=== PATIENT | female | born 1965 | race African-American/Black ===

== ENCOUNTER 2021-05-24 12:01 | Inpatient (IN) | payer OTHER ==
[2021-05-24 13:29] VITALS: BMI 23.3
[2021-05-24] MEDS ORDERED: MAG HYDROX/AL HYDROX/SIMETH 30 ML UNIT-DOSE CUP PO PRN (13:56)
[2021-05-24] MEDS ORDERED: P-EPHED 60MG/TRIPROLIDI 2.5MG TABLET PO PRN (13:56)
[2021-05-24] MEDS ORDERED: MAGNESIUM CITRATE 300 ML BOTTLE PO PRN (13:56)
[2021-05-24] MEDS ORDERED: MAGNESIUM HYDROX 2400MG/30ML ORAL SUSPENSION 30 ML CUP PO PRN (13:56)
[2021-05-24] MEDS ORDERED: guaiFENesin 200 MG/10 ML 10 ML UNIT-DOSE CUPS PO PRN (13:56)
[2021-05-24] MEDS ORDERED: LOPERAMIDE HCL 2 MG CAPSULE PO PRN (13:56)
[2021-05-24] MEDS ORDERED: IBUPROFEN 400 MG TABLET (FP) PO PRN (13:56)
[2021-05-24] MEDS: hydrOXYzine PAMOATE 25 MG CAPSULE (FP) PO SCH ×3 (21:16→22:44)
[2021-05-24] MEDS: MELATONIN 5 MG TABLETS PO SCH (21:16)
[2021-05-24] MEDS: THIAMINE HCL 100 MG TABLET (FP) PO SCH (21:19)
[2021-05-24] MEDS: PRENATAL VITAMINS W/ FOLIC ACID TABLET (FP) PO SCH (21:19)
[2021-05-24] MEDS: NICOTINE 7 MG/24 HOURS TOPICAL PATCH TD SCH (21:19)
[2021-05-25] MEDS ORDERED: methaDONE HCL 40 MG DISPERSABLE TABLET PO SCH (08:00)
[2021-05-25] MEDS ORDERED: methaDONE HCL 40 MG DISPERSABLE TABLET ONE (09:04)
[2021-05-25] MEDS ORDERED: methaDONE HCL 10 MG TABLET ONE (09:04)
[2021-05-25] MEDS: PRENATAL VITAMINS W/ FOLIC ACID TABLET (FP) PO SCH (09:07)
[2021-05-25] MEDS: NICOTINE 7 MG/24 HOURS TOPICAL PATCH TD SCH (09:07)
[2021-05-25 11:24] LABS: HEMATOCRIT 36.4 % (32.4-45.2); HEMOGLOBIN 11.5 GM/dL (10.7-15.3); MCH 26.7 pg (25.7-33.7); MCHC 31.6 g/dl (32.0-36.0); MEAN CELL VOLUME 84.3 fl (80-96); MEAN PLT VOLUME 11.1 fl (7.5-11.1); PLATELET COUNT 185 10^3/uL (134-434); RBC 4.32 M/mm3 (3.60-5.2); RDW 13.8 % (11.6-15.6)
[2021-05-25 11:49] LABS: CALCIUM 8.6 mg/dL (8.5-10.1)
[2021-05-25 11:50] LABS: ALBUMIN 3.1 g/dl (3.4-5.0); BLOOD UREA NITROGEN 20.1 mg/dL (7-18)
[2021-05-25 11:53] LABS: CREATININE 1.2 mg/dL (0.55-1.3)
[2021-05-25 11:54] LABS: BILIRUBIN,TOTAL 0.7 mg/dL (0.2-1); TOT PROT 6.2 g/dl (6.4-8.2)
[2021-05-25] MEDS: NICOTINE 10 MG CARTRIDGE (INHALER) IH PRN (12:45)
[2021-05-25 17:25] LABS: EPI CELLS >36 /uL (0-25.1); HYALINE CASTS 1 /uL (0-3.1); URINE APPEARANCE CLOUDY; URINE BACTERIA 2800 /uL (0-1359); URINE BILIRUBIN NEGATIVE (NEGATIVE); URINE COLOR YELLOW; URINE GLUCOSE (UA) NEGATIVE (NEGATIVE); URINE KETONE NEGATIVE (NEGATIVE); URINE LEUK ESTERASE 3+ (NEGATIVE); URINE NITRITE NEGATIVE (NEGATIVE); URINE PROTEIN NEGATIVE (NEGATIVE); URINE RBC 5 /uL (0-23.9); URINE UROBILINOGEN 0.2 mg/dL (0.2-1.0); URINE WBC 251 /uL (0-25.8)
[2021-05-25] MEDS: guaiFENesin 600 MG TABLET.ER (FP) PO SCH (21:19)
[2021-05-25] MEDS: MELATONIN 5 MG TABLETS PO SCH (21:19)
[2021-05-25] MEDS: THIAMINE HCL 100 MG TABLET (FP) PO SCH (21:19)
[2021-05-26] MEDS ORDERED: methaDONE HCL 40 MG DISPERSABLE TABLET ONE (03:04)
[2021-05-26] MEDS ORDERED: methaDONE HCL 10 MG TABLET ONE (03:04)
[2021-05-26] MEDS: NICOTINE 7 MG/24 HOURS TOPICAL PATCH TD SCH (10:28)
[2021-05-26] MEDS: NICOTINE 10 MG CARTRIDGE (INHALER) IH PRN (10:28)
[2021-05-26] MEDS: PRENATAL VITAMINS W/ FOLIC ACID TABLET (FP) PO SCH (10:28)
[2021-05-26] MEDS: guaiFENesin 600 MG TABLET.ER (FP) PO SCH ×2 (10:30→22:30)
[2021-05-26] MEDS: COLLOIDAL OATMEAL 1 BAR EACH TP PRN (10:30)
[2021-05-26] MEDS: THIAMINE HCL 100 MG TABLET (FP) PO SCH (22:30)
[2021-05-26] MEDS: MELATONIN 5 MG TABLETS PO SCH (22:30)
[2021-05-27] MEDS ORDERED: methaDONE HCL 10 MG TABLET ONE (03:10)
[2021-05-27] MEDS ORDERED: methaDONE HCL 40 MG DISPERSABLE TABLET ONE (03:11)
[2021-05-27] MEDS ORDERED: PT OWN MED DRAWER 7, Y5N ONE (09:02)
[2021-05-27] MEDS: PRENATAL VITAMINS W/ FOLIC ACID TABLET (FP) PO SCH (10:47)
[2021-05-27] MEDS: guaiFENesin 600 MG TABLET.ER (FP) PO SCH ×2 (10:47→21:18)
[2021-05-27] MEDS: NICOTINE 7 MG/24 HOURS TOPICAL PATCH TD SCH (10:48)
[2021-05-27] MEDS: NICOTINE 10 MG CARTRIDGE (INHALER) IH PRN ×2 (10:48→21:38)
[2021-05-27 14:39] LABS: SYPHILIS W/ RPR CONF NON-REACTIVE (NONREACTIVE)
[2021-05-27] MEDS: THIAMINE HCL 100 MG TABLET (FP) PO SCH (21:18)
[2021-05-27] MEDS: MELATONIN 5 MG TABLETS PO SCH (21:18)
[2021-05-27] MEDS: SODIUM CHLORIDE NASAL SPRAY 44 ML BOTTLE NS PRN (21:20)
[2021-05-28] MEDS ORDERED: methaDONE HCL 10 MG TABLET ONE (03:20)
[2021-05-28] MEDS ORDERED: methaDONE HCL 40 MG DISPERSABLE TABLET ONE (03:20)
[2021-05-28] MEDS ORDERED: PT OWN MED DRAWER 7, Y5N ONE (10:05)
[2021-05-28] MEDS: PRENATAL VITAMINS W/ FOLIC ACID TABLET (FP) PO SCH (10:13)
[2021-05-28] MEDS: guaiFENesin 600 MG TABLET.ER (FP) PO SCH ×2 (10:13→21:19)
[2021-05-28] MEDS: SODIUM CHLORIDE NASAL SPRAY 44 ML BOTTLE NS PRN ×2 (10:14→21:20)
[2021-05-28] MEDS: NICOTINE 7 MG/24 HOURS TOPICAL PATCH TD SCH (10:15)
[2021-05-28] MEDS: THIAMINE HCL 100 MG TABLET (FP) PO SCH (21:19)
[2021-05-28] MEDS: MELATONIN 5 MG TABLETS PO SCH (21:19)
[2021-05-28] MEDS: NICOTINE 10 MG CARTRIDGE (INHALER) IH PRN (21:23)
[2021-05-29] MEDS ORDERED: methaDONE HCL 10 MG TABLET ONE (03:26)
[2021-05-29] MEDS ORDERED: methaDONE HCL 40 MG DISPERSABLE TABLET ONE (03:26)
[2021-05-29] MEDS: NICOTINE 7 MG/24 HOURS TOPICAL PATCH TD SCH (10:03)
[2021-05-29] MEDS: PRENATAL VITAMINS W/ FOLIC ACID TABLET (FP) PO SCH (10:03)
[2021-05-29] MEDS ORDERED: PT OWN MED DRAWER 7, Y5N ONE (10:06)
[2021-05-29] MEDS: guaiFENesin 600 MG TABLET.ER (FP) PO SCH (10:07)
[2021-05-29] MEDS: SODIUM CHLORIDE NASAL SPRAY 44 ML BOTTLE NS PRN (10:08)
[2021-05-29] MEDS: ACETAMINOPHEN 325 MG TABLET (FP) PO PRN (16:12)
[2021-05-29] MEDS: MELATONIN 5 MG TABLETS PO SCH (21:07)
[2021-05-29] MEDS: THIAMINE HCL 100 MG TABLET (FP) PO SCH (21:07)
[2021-05-30] MEDS ORDERED: methaDONE HCL 10 MG TABLET ONE (04:02)
[2021-05-30] MEDS ORDERED: methaDONE HCL 40 MG DISPERSABLE TABLET ONE (04:03)
[2021-05-30] MEDS: PRENATAL VITAMINS W/ FOLIC ACID TABLET (FP) PO SCH (10:04)
[2021-05-30] MEDS: NICOTINE 7 MG/24 HOURS TOPICAL PATCH TD SCH (10:04)
[2021-05-30] MEDS: SODIUM CHLORIDE NASAL SPRAY 44 ML BOTTLE NS PRN ×2 (10:04→21:30)
[2021-05-30] MEDS: SUVOREXANT 10 MG TABLET PO PRN (21:30)
[2021-05-30] MEDS: THIAMINE HCL 100 MG TABLET (FP) PO SCH (21:31)
[2021-05-30] MEDS: MELATONIN 5 MG TABLETS PO SCH (21:32)
[2021-05-30] MEDS: NICOTINE 10 MG CARTRIDGE (INHALER) IH PRN (21:33)
[2021-05-31] MEDS ORDERED: methaDONE HCL 10 MG TABLET ONE (03:17)
[2021-05-31] MEDS ORDERED: methaDONE HCL 40 MG DISPERSABLE TABLET ONE (03:18)
[2021-05-31] MEDS: guaiFENesin 200 MG/10 ML 10 ML UNIT-DOSE CUPS PO PRN ×2 (06:37→21:30)
[2021-05-31] MEDS: NICOTINE 7 MG/24 HOURS TOPICAL PATCH TD SCH (10:05)
[2021-05-31] MEDS: PRENATAL VITAMINS W/ FOLIC ACID TABLET (FP) PO SCH (10:05)
[2021-05-31] MEDS: SODIUM CHLORIDE NASAL SPRAY 44 ML BOTTLE NS PRN ×2 (10:05→21:31)
[2021-05-31] MEDS ORDERED: methaDONE HCL 40 MG DISPERSABLE TABLET PO SCH ×2 (13:08→13:11)
[2021-05-31] MEDS ORDERED: PHENYLEPHRINE HCL/COCOA BUTTER SUPPOSITORY RC PRN (13:29)
[2021-05-31] MEDS: ACETAMINOPHEN 325 MG TABLET (FP) PO PRN (20:21)
[2021-05-31] MEDS: THIAMINE HCL 100 MG TABLET (FP) PO SCH (21:31)
[2021-05-31] MEDS: SUVOREXANT 10 MG TABLET PO PRN (21:31)
[2021-05-31] MEDS: SULFAMETHOXAZOLE/TRIMETHOPRIM 800MG/160MG D.S. TABLET PO SCH (21:31)
[2021-05-31] MEDS: HYDROCORTISONE 2.5% TOPICAL CREAM 30 GM TUBE TP SCH (22:27)
[2021-06-01] MEDS ORDERED: methaDONE HCL 40 MG DISPERSABLE TABLET ONE (06:27)
[2021-06-01] MEDS ORDERED: methaDONE HCL 10 MG TABLET ONE (06:27)
[2021-06-01] MEDS: guaiFENesin 200 MG/10 ML 10 ML UNIT-DOSE CUPS PO PRN ×2 (06:30→21:05)
[2021-06-01] MEDS: NICOTINE 7 MG/24 HOURS TOPICAL PATCH TD SCH (10:14)
[2021-06-01] MEDS: PRENATAL VITAMINS W/ FOLIC ACID TABLET (FP) PO SCH (10:14)
[2021-06-01] MEDS: SULFAMETHOXAZOLE/TRIMETHOPRIM 800MG/160MG D.S. TABLET PO SCH ×2 (10:15→21:03)
[2021-06-01] MEDS: SODIUM CHLORIDE NASAL SPRAY 44 ML BOTTLE NS PRN ×2 (10:16→21:02)
[2021-06-01] MEDS: ACETAMINOPHEN 325 MG TABLET (FP) PO PRN (10:17)
[2021-06-01] MEDS: HYDROCORTISONE 2.5% TOPICAL CREAM 30 GM TUBE TP SCH (10:20)
[2021-06-01] MEDS: THIAMINE HCL 100 MG TABLET (FP) PO SCH (21:03)
[2021-06-01] MEDS: NICOTINE 10 MG CARTRIDGE (INHALER) IH PRN (21:05)
[2021-06-01] MEDS: SUVOREXANT 10 MG TABLET PO PRN (22:13)
[2021-06-02] MEDS ORDERED: methaDONE HCL 10 MG TABLET ONE (06:33)
[2021-06-02] MEDS ORDERED: methaDONE HCL 40 MG DISPERSABLE TABLET ONE (06:33)
[2021-06-02] MEDS: guaiFENesin 200 MG/10 ML 10 ML UNIT-DOSE CUPS PO PRN ×2 (06:38→21:53)
[2021-06-02] MEDS: SODIUM CHLORIDE NASAL SPRAY 44 ML BOTTLE NS PRN ×2 (06:38→21:52)
[2021-06-02] MEDS: PRENATAL VITAMINS W/ FOLIC ACID TABLET (FP) PO SCH (10:17)
[2021-06-02] MEDS: SULFAMETHOXAZOLE/TRIMETHOPRIM 800MG/160MG D.S. TABLET PO SCH ×2 (10:17→21:52)
[2021-06-02] MEDS: NICOTINE 7 MG/24 HOURS TOPICAL PATCH TD SCH (10:18)
[2021-06-02] MEDS: HYDROCORTISONE 2.5% TOPICAL CREAM 30 GM TUBE TP SCH (10:20)
[2021-06-02] MEDS: ACETAMINOPHEN 325 MG TABLET (FP) PO PRN (11:23)
[2021-06-02] MEDS: NICOTINE 10 MG CARTRIDGE (INHALER) IH PRN (11:23)
[2021-06-02] MEDS: SUVOREXANT 10 MG TABLET PO PRN (21:51)
[2021-06-02] MEDS: THIAMINE HCL 100 MG TABLET (FP) PO SCH (21:52)
[2021-06-03] MEDS ORDERED: methaDONE HCL 40 MG DISPERSABLE TABLET ONE (03:37)
[2021-06-03] MEDS ORDERED: methaDONE HCL 10 MG TABLET ONE (03:37)
[2021-06-03] MEDS: SODIUM CHLORIDE NASAL SPRAY 44 ML BOTTLE NS PRN ×2 (06:24→21:16)
[2021-06-03] MEDS: guaiFENesin 200 MG/10 ML 10 ML UNIT-DOSE CUPS PO PRN ×2 (06:27→21:17)
[2021-06-03] MEDS: PRENATAL VITAMINS W/ FOLIC ACID TABLET (FP) PO SCH (10:35)
[2021-06-03] MEDS: SULFAMETHOXAZOLE/TRIMETHOPRIM 800MG/160MG D.S. TABLET PO SCH (10:35)
[2021-06-03] MEDS: NICOTINE 7 MG/24 HOURS TOPICAL PATCH TD SCH (10:36)
[2021-06-03] MEDS: HYDROCORTISONE 2.5% TOPICAL CREAM 30 GM TUBE TP SCH (10:37)
[2021-06-03] MEDS: NICOTINE 10 MG CARTRIDGE (INHALER) IH PRN (15:48)
[2021-06-03] MEDS: THIAMINE HCL 100 MG TABLET (FP) PO SCH (21:13)
[2021-06-03] MEDS: SUVOREXANT 10 MG TABLET PO PRN (21:16)
[2021-06-04] MEDS ORDERED: methaDONE HCL 10 MG TABLET ONE (03:29)
[2021-06-04] MEDS ORDERED: methaDONE HCL 40 MG DISPERSABLE TABLET ONE (03:29)
[2021-06-04] MEDS: SODIUM CHLORIDE NASAL SPRAY 44 ML BOTTLE NS PRN ×2 (06:27→21:46)
[2021-06-04] MEDS: guaiFENesin 200 MG/10 ML 10 ML UNIT-DOSE CUPS PO PRN (06:28)
[2021-06-04] MEDS: PRENATAL VITAMINS W/ FOLIC ACID TABLET (FP) PO SCH (10:50)
[2021-06-04] MEDS: NICOTINE 7 MG/24 HOURS TOPICAL PATCH TD SCH (10:51)
[2021-06-04] MEDS: HYDROCORTISONE 2.5% TOPICAL CREAM 30 GM TUBE TP SCH (10:52)
[2021-06-04] MEDS: ACETAMINOPHEN 325 MG TABLET (FP) PO PRN ×2 (10:53→21:48)
[2021-06-04] MEDS: COLLOIDAL OATMEAL 1 BAR EACH TP PRN (10:54)
[2021-06-04] MEDS: THIAMINE HCL 100 MG TABLET (FP) PO SCH (21:44)
[2021-06-04] MEDS: SUVOREXANT 10 MG TABLET PO PRN (21:45)
[2021-06-04] MEDS: NICOTINE 10 MG CARTRIDGE (INHALER) IH PRN (21:49)
[2021-06-05] MEDS ORDERED: methaDONE HCL 40 MG DISPERSABLE TABLET ONE (03:34)
[2021-06-05] MEDS ORDERED: methaDONE HCL 10 MG TABLET ONE (03:34)
[2021-06-05] MEDS: guaiFENesin 200 MG/10 ML 10 ML UNIT-DOSE CUPS PO PRN (06:39)
[2021-06-05] MEDS: PRENATAL VITAMINS W/ FOLIC ACID TABLET (FP) PO SCH (10:30)
[2021-06-05] MEDS: NICOTINE 7 MG/24 HOURS TOPICAL PATCH TD SCH (10:31)
[2021-06-05] MEDS: HYDROCORTISONE 2.5% TOPICAL CREAM 30 GM TUBE TP SCH (10:32)
[2021-06-05] MEDS: ACETAMINOPHEN 325 MG TABLET (FP) PO PRN ×2 (10:33→22:26)
[2021-06-05] MEDS: THIAMINE HCL 100 MG TABLET (FP) PO SCH (22:26)
[2021-06-05] MEDS: NICOTINE 10 MG CARTRIDGE (INHALER) IH PRN (22:29)
[2021-06-05] MEDS: SUVOREXANT 10 MG TABLET PO PRN (22:30)
[2021-06-06] MEDS ORDERED: methaDONE HCL 10 MG TABLET ONE ×2 (05:24→05:40)
[2021-06-06] MEDS ORDERED: methaDONE HCL 40 MG DISPERSABLE TABLET ONE ×2 (05:24→05:40)
[2021-06-06] MEDS: guaiFENesin 200 MG/10 ML 10 ML UNIT-DOSE CUPS PO PRN ×2 (06:52→21:35)
[2021-06-06] MEDS: ACETAMINOPHEN 325 MG TABLET (FP) PO PRN ×2 (06:52→21:35)
[2021-06-06] MEDS: PRENATAL VITAMINS W/ FOLIC ACID TABLET (FP) PO SCH (10:26)
[2021-06-06] MEDS: NICOTINE 7 MG/24 HOURS TOPICAL PATCH TD SCH (10:27)
[2021-06-06] MEDS: HYDROCORTISONE 2.5% TOPICAL CREAM 30 GM TUBE TP SCH (10:27)
[2021-06-06] MEDS: NICOTINE 10 MG CARTRIDGE (INHALER) IH PRN ×2 (10:28→15:40)
[2021-06-06 18:02] LABS: EPI CELLS 18 /uL (0-25.1); HYALINE CASTS 0 /uL (0-3.1); PH,URINE 6.5 (5.0-8.0); URINE APPEARANCE CLEAR; URINE BACTERIA 161 /uL (0-1359); URINE BILIRUBIN NEGATIVE (NEGATIVE); URINE COLOR YELLOW; URINE GLUCOSE (UA) NEGATIVE (NEGATIVE); URINE KETONE NEGATIVE (NEGATIVE); URINE LEUK ESTERASE 2+ (NEGATIVE); URINE NITRITE NEGATIVE (NEGATIVE); URINE PROTEIN NEGATIVE (NEGATIVE); URINE RBC 25 /uL (0-23.9); URINE WBC 30 /uL (0-25.8)
[2021-06-06] MEDS: SUVOREXANT 10 MG TABLET PO PRN (21:34)
[2021-06-06] MEDS: SODIUM CHLORIDE NASAL SPRAY 44 ML BOTTLE NS PRN (21:34)
[2021-06-06] MEDS: THIAMINE HCL 100 MG TABLET (FP) PO SCH (21:34)
[2021-06-07] MEDS ORDERED: methaDONE HCL 40 MG DISPERSABLE TABLET ONE (06:28)
[2021-06-07] MEDS ORDERED: methaDONE HCL 10 MG TABLET ONE (06:28)
[2021-06-07] MEDS: guaiFENesin 200 MG/10 ML 10 ML UNIT-DOSE CUPS PO PRN ×2 (06:38→21:36)
[2021-06-07] MEDS: ACETAMINOPHEN 325 MG TABLET (FP) PO PRN ×2 (06:38→21:35)
[2021-06-07] MEDS: PRENATAL VITAMINS W/ FOLIC ACID TABLET (FP) PO SCH (10:34)
[2021-06-07] MEDS: NICOTINE 7 MG/24 HOURS TOPICAL PATCH TD SCH (10:34)
[2021-06-07] MEDS: HYDROCORTISONE 2.5% TOPICAL CREAM 30 GM TUBE TP SCH (10:37)
[2021-06-07] MEDS: SODIUM CHLORIDE NASAL SPRAY 44 ML BOTTLE NS PRN ×2 (11:10→21:35)
[2021-06-07] MEDS: SUVOREXANT 10 MG TABLET PO PRN (21:35)
[2021-06-07] MEDS: THIAMINE HCL 100 MG TABLET (FP) PO SCH (21:35)
[2021-06-07] MEDS: WITCH HAZEL 50% (TUCKS) 40 PAD/JAR PAD TP PRN (21:36)
[2021-06-08] MEDS ORDERED: methaDONE HCL 10 MG TABLET ONE (03:15)
[2021-06-08] MEDS ORDERED: methaDONE HCL 40 MG DISPERSABLE TABLET ONE (03:15)
[2021-06-08] MEDS: ACETAMINOPHEN 325 MG TABLET (FP) PO PRN (10:45)
[2021-06-08] MEDS: NICOTINE 7 MG/24 HOURS TOPICAL PATCH TD SCH (10:45)
[2021-06-08] MEDS: PRENATAL VITAMINS W/ FOLIC ACID TABLET (FP) PO SCH (10:45)
[2021-06-08] MEDS: SODIUM CHLORIDE NASAL SPRAY 44 ML BOTTLE NS PRN ×2 (10:47→21:24)
[2021-06-08] MEDS: WITCH HAZEL 50% (TUCKS) 40 PAD/JAR PAD TP PRN ×2 (10:48→21:28)
[2021-06-08] MEDS: BENZOCAINE 28 GM HEMORRHOIDAL OINTMENT RC PRN (10:50)
[2021-06-08] MEDS: THIAMINE HCL 100 MG TABLET (FP) PO SCH (21:25)
[2021-06-08] MEDS: SUVOREXANT 10 MG TABLET PO PRN (21:25)
[2021-06-08] MEDS: guaiFENesin 200 MG/10 ML 10 ML UNIT-DOSE CUPS PO PRN (21:25)
[2021-06-08] MEDS: NICOTINE 10 MG CARTRIDGE (INHALER) IH PRN (21:27)
[2021-06-09] MEDS ORDERED: methaDONE HCL 10 MG TABLET ONE (03:36)
[2021-06-09] MEDS ORDERED: methaDONE HCL 40 MG DISPERSABLE TABLET ONE (03:36)
[2021-06-09] MEDS: SODIUM CHLORIDE NASAL SPRAY 44 ML BOTTLE NS PRN (06:27)
[2021-06-09] MEDS: guaiFENesin 200 MG/10 ML 10 ML UNIT-DOSE CUPS PO PRN ×2 (06:30→21:29)
[2021-06-09] MEDS: PRENATAL VITAMINS W/ FOLIC ACID TABLET (FP) PO SCH (10:18)
[2021-06-09] MEDS: NICOTINE 7 MG/24 HOURS TOPICAL PATCH TD SCH (10:19)
[2021-06-09] MEDS: NICOTINE 10 MG CARTRIDGE (INHALER) IH PRN (19:00)
[2021-06-09] MEDS: WITCH HAZEL 50% (TUCKS) 40 PAD/JAR PAD TP PRN (19:06)
[2021-06-09] MEDS: BENZOCAINE 28 GM HEMORRHOIDAL OINTMENT RC PRN (19:07)
[2021-06-09] MEDS: THIAMINE HCL 100 MG TABLET (FP) PO SCH (21:29)
[2021-06-09] MEDS: SUVOREXANT 10 MG TABLET PO PRN (21:29)
[2021-06-09] MEDS: ACETAMINOPHEN 325 MG TABLET (FP) PO PRN (21:29)
[2021-06-10] MEDS ORDERED: methaDONE HCL 40 MG DISPERSABLE TABLET ONE (05:39)
[2021-06-10] MEDS ORDERED: methaDONE HCL 10 MG TABLET ONE (05:39)
[2021-06-10] MEDS: SODIUM CHLORIDE NASAL SPRAY 44 ML BOTTLE NS PRN ×2 (06:42→21:51)
[2021-06-10] MEDS: guaiFENesin 200 MG/10 ML 10 ML UNIT-DOSE CUPS PO PRN ×2 (06:42→21:51)
[2021-06-10] MEDS: PRENATAL VITAMINS W/ FOLIC ACID TABLET (FP) PO SCH (10:28)
[2021-06-10] MEDS: NICOTINE 7 MG/24 HOURS TOPICAL PATCH TD SCH (10:28)
[2021-06-10] MEDS: ACETAMINOPHEN 325 MG TABLET (FP) PO PRN (17:14)
[2021-06-10] MEDS: THIAMINE HCL 100 MG TABLET (FP) PO SCH (21:51)
[2021-06-10] MEDS: SUVOREXANT 10 MG TABLET PO PRN (21:52)
[2021-06-11] MEDS ORDERED: methaDONE HCL 10 MG TABLET ONE (03:46)
[2021-06-11] MEDS ORDERED: methaDONE HCL 40 MG DISPERSABLE TABLET ONE (03:46)
[2021-06-11] MEDS: guaiFENesin 200 MG/10 ML 10 ML UNIT-DOSE CUPS PO PRN ×2 (06:55→21:28)
[2021-06-11] MEDS: SODIUM CHLORIDE NASAL SPRAY 44 ML BOTTLE NS PRN ×2 (06:57→21:27)
[2021-06-11] MEDS: NICOTINE 7 MG/24 HOURS TOPICAL PATCH TD SCH (09:53)
[2021-06-11] MEDS: PRENATAL VITAMINS W/ FOLIC ACID TABLET (FP) PO SCH (09:53)
[2021-06-11] MEDS: ACETAMINOPHEN 325 MG TABLET (FP) PO PRN ×2 (09:54→21:28)
[2021-06-11] MEDS: SUVOREXANT 10 MG TABLET PO PRN (21:27)
[2021-06-11] MEDS: THIAMINE HCL 100 MG TABLET (FP) PO SCH (21:28)
[2021-06-11] MEDS: NICOTINE 10 MG CARTRIDGE (INHALER) IH PRN (21:30)
[2021-06-12] MEDS ORDERED: methaDONE HCL 10 MG TABLET ONE (05:29)
[2021-06-12] MEDS ORDERED: methaDONE HCL 40 MG DISPERSABLE TABLET ONE (05:29)
[2021-06-12] MEDS: guaiFENesin 200 MG/10 ML 10 ML UNIT-DOSE CUPS PO PRN (06:35)
[2021-06-12] MEDS: ACETAMINOPHEN 325 MG TABLET (FP) PO PRN ×2 (06:36→19:52)
[2021-06-12] MEDS: SODIUM CHLORIDE NASAL SPRAY 44 ML BOTTLE NS PRN (06:37)
[2021-06-12] MEDS: WITCH HAZEL 50% (TUCKS) 40 PAD/JAR PAD TP PRN (10:20)
[2021-06-12] MEDS: NICOTINE 7 MG/24 HOURS TOPICAL PATCH TD SCH (10:20)
[2021-06-12] MEDS: PRENATAL VITAMINS W/ FOLIC ACID TABLET (FP) PO SCH (10:20)
[2021-06-12] MEDS: BENZOCAINE 28 GM HEMORRHOIDAL OINTMENT RC PRN (10:21)
[2021-06-12] MEDS: SUVOREXANT 10 MG TABLET PO PRN (21:36)
[2021-06-12] MEDS: THIAMINE HCL 100 MG TABLET (FP) PO SCH (21:36)
[2021-06-13] MEDS ORDERED: methaDONE HCL 10 MG TABLET ONE (05:57)
[2021-06-13] MEDS ORDERED: methaDONE HCL 40 MG DISPERSABLE TABLET ONE (05:57)
[2021-06-13] MEDS: guaiFENesin 200 MG/10 ML 10 ML UNIT-DOSE CUPS PO PRN ×2 (06:17→21:19)
[2021-06-13] MEDS: SODIUM CHLORIDE NASAL SPRAY 44 ML BOTTLE NS PRN ×2 (06:17→21:19)
[2021-06-13] MEDS: ACETAMINOPHEN 325 MG TABLET (FP) PO PRN ×2 (07:08→21:20)
[2021-06-13] MEDS: NICOTINE 7 MG/24 HOURS TOPICAL PATCH TD SCH (10:01)
[2021-06-13] MEDS: PRENATAL VITAMINS W/ FOLIC ACID TABLET (FP) PO SCH (10:01)
[2021-06-13] MEDS: NICOTINE 10 MG CARTRIDGE (INHALER) IH PRN (10:02)
[2021-06-13] MEDS: BENZOCAINE 28 GM HEMORRHOIDAL OINTMENT RC PRN (10:03)
[2021-06-13] MEDS: THIAMINE HCL 100 MG TABLET (FP) PO SCH (21:19)
[2021-06-13] MEDS: SUVOREXANT 10 MG TABLET PO PRN (21:19)
[2021-06-14] MEDS ORDERED: methaDONE 80 MG, methaDONE 20 MG PO SCH (06:00)
[2021-06-14] MEDS ORDERED: methaDONE HCL 10 MG TABLET PO SCH (06:00)
[2021-06-14] MEDS ORDERED: methaDONE HCL 40 MG DISPERSABLE TABLET ONE (06:38)
[2021-06-14] MEDS ORDERED: methaDONE HCL 10 MG TABLET ONE (06:38)
[2021-06-14] MEDS: guaiFENesin 200 MG/10 ML 10 ML UNIT-DOSE CUPS PO PRN ×2 (06:40→21:26)
[2021-06-14] MEDS: ACETAMINOPHEN 325 MG TABLET (FP) PO PRN ×2 (09:47→18:40)
[2021-06-14] MEDS: PRENATAL VITAMINS W/ FOLIC ACID TABLET (FP) PO SCH (09:47)
[2021-06-14] MEDS: BENZOCAINE 28 GM HEMORRHOIDAL OINTMENT RC PRN (09:48)
[2021-06-14] MEDS: WITCH HAZEL 50% (TUCKS) 40 PAD/JAR PAD TP PRN (09:51)
[2021-06-14] MEDS: NICOTINE 7 MG/24 HOURS TOPICAL PATCH TD SCH (09:51)
[2021-06-14] MEDS: SODIUM CHLORIDE NASAL SPRAY 44 ML BOTTLE NS PRN (21:25)
[2021-06-14] MEDS: THIAMINE HCL 100 MG TABLET (FP) PO SCH (21:26)
[2021-06-14] MEDS: COLLOIDAL OATMEAL 1 BAR EACH TP PRN (21:26)
[2021-06-14] MEDS: NICOTINE 10 MG CARTRIDGE (INHALER) IH PRN (21:27)
[2021-06-15] MEDS ORDERED: methaDONE HCL 10 MG TABLET PO SCH (06:00)
[2021-06-15] MEDS ORDERED: methaDONE HCL 40 MG DISPERSABLE TABLET ONE (06:46)
[2021-06-15] MEDS ORDERED: methaDONE HCL 10 MG TABLET ONE (06:46)
[2021-06-15] MEDS: NICOTINE 7 MG/24 HOURS TOPICAL PATCH TD SCH (11:05)
[2021-06-15] MEDS: PRENATAL VITAMINS W/ FOLIC ACID TABLET (FP) PO SCH (11:05)
[2021-06-15] MEDS: BACITRACIN 0.9 GM PACKET TP SCH ×2 (14:36→22:13)
[2021-06-15] MEDS: SUVOREXANT 10 MG TABLET PO PRN (22:12)
[2021-06-15] MEDS: ACETAMINOPHEN 325 MG TABLET (FP) PO PRN (22:13)
[2021-06-15] MEDS: SODIUM CHLORIDE NASAL SPRAY 44 ML BOTTLE NS PRN (22:13)
[2021-06-15] MEDS: guaiFENesin 200 MG/10 ML 10 ML UNIT-DOSE CUPS PO PRN (22:13)
[2021-06-15] MEDS: THIAMINE HCL 100 MG TABLET (FP) PO SCH (22:14)
[2021-06-16] MEDS ORDERED: methaDONE HCL 40 MG DISPERSABLE TABLET ONE (04:40)
[2021-06-16] MEDS ORDERED: methaDONE HCL 10 MG TABLET ONE (04:40)
[2021-06-16] MEDS ORDERED: methaDONE HCL 10 MG TABLET PO SCH (06:00)
[2021-06-16] MEDS: methaDONE 80 MG, methaDONE 10 MG PO SCH (06:35)
[2021-06-16] MEDS: SODIUM CHLORIDE NASAL SPRAY 44 ML BOTTLE NS PRN ×2 (10:51→21:15)
[2021-06-16] MEDS: PRENATAL VITAMINS W/ FOLIC ACID TABLET (FP) PO SCH (10:52)
[2021-06-16] MEDS: ACETAMINOPHEN 325 MG TABLET (FP) PO PRN ×2 (10:52→21:16)
[2021-06-16] MEDS: BACITRACIN 0.9 GM PACKET TP SCH ×2 (10:53→21:15)
[2021-06-16] MEDS: NICOTINE 7 MG/24 HOURS TOPICAL PATCH TD SCH (10:53)
[2021-06-16] MEDS: BENZOCAINE 28 GM HEMORRHOIDAL OINTMENT RC PRN (10:53)
[2021-06-16] MEDS: WITCH HAZEL 50% (TUCKS) 40 PAD/JAR PAD TP PRN (10:54)
[2021-06-16] MEDS: NICOTINE 10 MG CARTRIDGE (INHALER) IH PRN (14:13)
[2021-06-16] MEDS: guaiFENesin 200 MG/10 ML 10 ML UNIT-DOSE CUPS PO PRN (21:15)
[2021-06-16] MEDS: SUVOREXANT 10 MG TABLET PO PRN (21:15)
[2021-06-16] MEDS: THIAMINE HCL 100 MG TABLET (FP) PO SCH (21:16)
[2021-06-17] MEDS ORDERED: methaDONE HCL 10 MG TABLET ONE (03:54)
[2021-06-17] MEDS ORDERED: methaDONE HCL 40 MG DISPERSABLE TABLET ONE (03:54)
[2021-06-17] MEDS: SODIUM CHLORIDE NASAL SPRAY 44 ML BOTTLE NS PRN (06:40)
[2021-06-17] MEDS: methaDONE 80 MG, methaDONE 10 MG PO SCH (06:40)
[2021-06-17] MEDS: guaiFENesin 200 MG/10 ML 10 ML UNIT-DOSE CUPS PO PRN (06:42)
[2021-06-17] MEDS: PRENATAL VITAMINS W/ FOLIC ACID TABLET (FP) PO SCH (11:08)
[2021-06-17] MEDS: NICOTINE 7 MG/24 HOURS TOPICAL PATCH TD SCH (11:09)
[2021-06-17] MEDS: BACITRACIN 0.9 GM PACKET TP SCH ×2 (11:09→21:45)
[2021-06-17] MEDS: THIAMINE HCL 100 MG TABLET (FP) PO SCH (21:45)
[2021-06-18] MEDS ORDERED: methaDONE HCL 40 MG DISPERSABLE TABLET ONE (03:47)
[2021-06-18] MEDS ORDERED: methaDONE HCL 10 MG TABLET ONE (03:47)
[2021-06-18] MEDS: NICOTINE 10 MG CARTRIDGE (INHALER) IH PRN (07:05)
[2021-06-18] MEDS: methaDONE 80 MG, methaDONE 10 MG PO SCH (07:07)
[2021-06-18] MEDS: guaiFENesin 200 MG/10 ML 10 ML UNIT-DOSE CUPS PO PRN ×2 (07:07→21:51)
[2021-06-18] MEDS: SODIUM CHLORIDE NASAL SPRAY 44 ML BOTTLE NS PRN ×2 (07:09→21:51)
[2021-06-18] MEDS: NICOTINE 7 MG/24 HOURS TOPICAL PATCH TD SCH (10:19)
[2021-06-18] MEDS: PRENATAL VITAMINS W/ FOLIC ACID TABLET (FP) PO SCH (10:19)
[2021-06-18] MEDS: BACITRACIN 0.9 GM PACKET TP SCH ×2 (10:20→21:39)
[2021-06-18] MEDS: THIAMINE HCL 100 MG TABLET (FP) PO SCH (21:39)
[2021-06-18] MEDS: SUVOREXANT 10 MG TABLET PO PRN (21:47)
[2021-06-18] MEDS: ACETAMINOPHEN 325 MG TABLET (FP) PO PRN (21:50)
[2021-06-19] MEDS ORDERED: methaDONE HCL 40 MG DISPERSABLE TABLET ONE (03:44)
[2021-06-19] MEDS ORDERED: methaDONE HCL 10 MG TABLET ONE (03:44)
[2021-06-19] MEDS: methaDONE 80 MG, methaDONE 10 MG PO SCH (06:13)
[2021-06-19] MEDS: guaiFENesin 200 MG/10 ML 10 ML UNIT-DOSE CUPS PO PRN ×2 (06:16→21:20)
[2021-06-19] MEDS: SODIUM CHLORIDE NASAL SPRAY 44 ML BOTTLE NS PRN ×2 (06:17→21:20)
[2021-06-19] MEDS: PRENATAL VITAMINS W/ FOLIC ACID TABLET (FP) PO SCH (10:39)
[2021-06-19] MEDS: BACITRACIN 0.9 GM PACKET TP SCH ×2 (10:40→21:21)
[2021-06-19] MEDS: NICOTINE 7 MG/24 HOURS TOPICAL PATCH TD SCH (10:40)
[2021-06-19] MEDS: SUVOREXANT 10 MG TABLET PO PRN (21:20)
[2021-06-19] MEDS: THIAMINE HCL 100 MG TABLET (FP) PO SCH (21:21)
[2021-06-19] MEDS: ACETAMINOPHEN 325 MG TABLET (FP) PO PRN (21:21)
[2021-06-20] MEDS ORDERED: methaDONE HCL 40 MG DISPERSABLE TABLET ONE (03:10)
[2021-06-20] MEDS ORDERED: methaDONE HCL 10 MG TABLET ONE (03:10)
[2021-06-20] MEDS: methaDONE 80 MG, methaDONE 10 MG PO SCH (06:13)
[2021-06-20 07:32] VITALS: BP 124/67; PULSE 53; TEMP 96.8
[2021-06-20] MEDS: PRENATAL VITAMINS W/ FOLIC ACID TABLET (FP) PO SCH (09:40)
[2021-06-20] MEDS: BACITRACIN 0.9 GM PACKET TP SCH (09:41)
[2021-06-20] MEDS: NICOTINE 7 MG/24 HOURS TOPICAL PATCH TD SCH (09:41)
== END 2021-06-20 09:40 | disposition home or self-care (01) | DRG 772 ==
LOC: YASAS 12:01 → Y5N 18:50
PROVIDERS: ADMIT Allergy & Immunology; ATTEND Allergy & Immunology
PROC: HZ42ZZZ Group Counseling for Substance Abuse Treatment, Cognitive-Behavioral (ICD-10-PCS; principal; 2021-05-24)
DX: F11.20 Opioid dependence, uncomplicated (principal); F14.20 Cocaine dependence, uncomplicated; F31.9 Bipolar disorder, unspecified; F19.282 Other psychoactive substance dependence with psychoactive substance-induced sleep disorder; F19.280 Other psychoactive substance dependence with psychoactive substance-induced anxiety disorder; F19.24 Other psychoactive substance dependence with psychoactive substance-induced mood disorder; F41.8 Other specified anxiety disorders; F43.10 Post-traumatic stress disorder, unspecified; K62.89 Other specified diseases of anus and rectum; N39.0 Urinary tract infection, site not specified; R00.1 Bradycardia, unspecified; R05.9 Cough, unspecified; Z59.01 Sheltered homelessness; Z56.0 Unemployment, unspecified
CPT/HCPCS: 36415; 71046-TC-FY; 80053; 81003; 85027; 86780; 86803; 87086; 93005; 93010; C9803; U0003; U0005

== ENCOUNTER 2022-09-04 12:47 | Inpatient (IN) | payer OTHER ==
[2022-09-04 13:29] VITALS: BMI 20.9
[2022-09-04] MEDS ORDERED: MAG HYDROX/AL HYDROX/SIMETH 30 ML UNIT-DOSE CUP PO PRN (16:02)
[2022-09-04] MEDS ORDERED: MAGNESIUM HYDROX 2400MG/30ML ORAL SUSPENSION 30 ML CUP PO PRN (16:02)
[2022-09-04] MEDS ORDERED: NALOXONE HCL 0.4 MG/ML VIAL IM PRN (16:02)
[2022-09-04] MEDS ORDERED: MELATONIN 5 MG TABLETS PO PRN (16:02)
[2022-09-04] MEDS ORDERED: AMMONIUM LACTATE 12% LOTION 225 GM BOTTLE TP PRN (16:02)
[2022-09-04] MEDS ORDERED: NALOXONE HCL (KLOXXADO) 8 MG SPRAY NS PRN (16:02)
[2022-09-04] MEDS ORDERED: P-EPHED 60MG/TRIPROLIDI 2.5MG TABLET PO PRN (16:02)
[2022-09-04] MEDS ORDERED: guaiFENesin 600 MG TABLET.ER (FP) PO PRN (16:02)
[2022-09-04] MEDS ORDERED: BENZOCAINE/MENTHOL (CHLORASEPTIC ) LOZENGE MM PRN (16:02)
[2022-09-04] MEDS ORDERED: BENZONATATE 200 MG CAPSULE PO PRN (16:02)
[2022-09-04] MEDS ORDERED: POLYETHYLENE GLYCOL (HEALTHYLAX) 3350 17 GM PACKET PO PRN (16:02)
[2022-09-04] MEDS: NICOTINE POLACRILEX 2 MG GUM BUC PRN (20:34)
[2022-09-04] MEDS: THIAMINE HCL 100 MG TABLET (FP) PO SCH (21:17)
[2022-09-05] MEDS: methaDONE HCL 40 MG DISPERSABLE TABLET PO SCH (09:24)
[2022-09-05] MEDS: PRENATAL VITAMINS W/ FOLIC ACID TABLET (FP) PO SCH (09:25)
[2022-09-05 11:04] LABS: HEMATOCRIT 33.1 % (32.4-45.2); MCH 28.3 pg (25.7-33.7); MCHC 33.1 g/dl (32.0-36.0); MEAN CELL VOLUME 85.4 fl (80-96); MEAN PLT VOLUME 9.4 fl (7.5-11.1); PLATELET COUNT 218 10^3/uL (134-434); RBC 3.87 M/mm3 (3.60-5.2); WHITE BLOOD COUNT 5.5 K/mm3 (4.0-10.0)
[2022-09-05 11:07] LABS: POTASSIUM 4.6 mmol/L (3.5-5.1)
[2022-09-05 11:11] LABS: CALCIUM 8.8 mg/dL (8.5-10.1)
[2022-09-05 11:12] LABS: BLOOD UREA NITROGEN 31.1 mg/dL (7-18)
[2022-09-05 11:13] LABS: ALBUMIN 2.9 g/dl (3.4-5.0)
[2022-09-05 11:15] LABS: BILIRUBIN,TOTAL 0.3 mg/dL (0.2-1); CREATININE 1.4 mg/dL (0.55-1.3); TOT PROT 5.6 g/dl (6.4-8.2)
[2022-09-05 11:17] LABS: EPI CELLS >36 /uL (0-25.1); HYALINE CASTS 1 /uL (0-3.1); PH,URINE 5.5 (5.0-8.0); URINE APPEARANCE CLEAR; URINE BACTERIA 852 /uL (0-1359); URINE BILIRUBIN NEGATIVE (NEGATIVE); URINE COLOR YELLOW; URINE GLUCOSE (UA) NEGATIVE (NEGATIVE); URINE KETONE NEGATIVE (NEGATIVE); URINE LEUK ESTERASE 2+ (NEGATIVE); URINE NITRITE NEGATIVE (NEGATIVE); URINE PROTEIN NEGATIVE (NEGATIVE); URINE RBC 23 /uL (0-23.9); URINE UROBILINOGEN 0.2 mg/dL (0.2-1.0); URINE WBC 97 /uL (0-25.8)
[2022-09-05 11:33] LABS: SYPHILIS W/ RPR CONF NON-REACTIVE (NONREACTIVE)
[2022-09-05] MEDS: THIAMINE HCL 100 MG TABLET (FP) PO SCH (21:06)
[2022-09-05] MEDS ORDERED: QUEtiapine FUMARATE 100 MG TABLET (FP) PO SCH (22:00)
[2022-09-06] MEDS: methaDONE HCL 40 MG DISPERSABLE TABLET PO SCH (06:08)
[2022-09-06] MEDS: NICOTINE POLACRILEX 2 MG GUM BUC PRN ×5 (06:45→21:44)
[2022-09-06] MEDS: COLLOIDAL OATMEAL 1 BAR EACH TP PRN (09:54)
[2022-09-06] MEDS: PRENATAL VITAMINS W/ FOLIC ACID TABLET (FP) PO SCH (09:54)
[2022-09-06] MEDS: QUEtiapine FUMARATE 50 MG TABLET PO SCH (21:43)
[2022-09-06] MEDS: THIAMINE HCL 100 MG TABLET (FP) PO SCH (21:43)
[2022-09-07] MEDS: methaDONE HCL 40 MG DISPERSABLE TABLET PO SCH (06:12)
[2022-09-07] MEDS: PRENATAL VITAMINS W/ FOLIC ACID TABLET (FP) PO SCH (10:20)
[2022-09-07] MEDS: NICOTINE POLACRILEX 2 MG GUM BUC PRN ×3 (10:21→20:10)
[2022-09-07] MEDS: LOPERAMIDE HCL 2 MG CAPSULE PO PRN (16:48)
[2022-09-07] MEDS: QUEtiapine FUMARATE 50 MG TABLET PO SCH (20:10)
[2022-09-07] MEDS: THIAMINE HCL 100 MG TABLET (FP) PO SCH (23:16)
[2022-09-08] MEDS: methaDONE HCL 40 MG DISPERSABLE TABLET PO SCH (06:05)
[2022-09-08] MEDS: ACETAMINOPHEN 325 MG TABLET (FP) PO PRN ×3 (06:07→18:54)
[2022-09-08] MEDS: PRENATAL VITAMINS W/ FOLIC ACID TABLET (FP) PO SCH (10:34)
[2022-09-08] MEDS: NICOTINE POLACRILEX 2 MG GUM BUC PRN ×3 (10:36→20:25)
[2022-09-08] MEDS: QUEtiapine FUMARATE 50 MG TABLET PO SCH (20:24)
[2022-09-08] MEDS: THIAMINE HCL 100 MG TABLET (FP) PO SCH (22:16)
[2022-09-09] MEDS: ACETAMINOPHEN 325 MG TABLET (FP) PO PRN ×2 (06:12→17:47)
[2022-09-09] MEDS: methaDONE HCL 40 MG DISPERSABLE TABLET PO SCH (06:13)
[2022-09-09] MEDS: NICOTINE POLACRILEX 2 MG GUM BUC PRN ×2 (06:15→09:50)
[2022-09-09] MEDS: PRENATAL VITAMINS W/ FOLIC ACID TABLET (FP) PO SCH (09:48)
[2022-09-09] MEDS: NICOTINE 10 MG CARTRIDGE (INHALER) IH PRN (16:19)
[2022-09-09] MEDS: THIAMINE HCL 100 MG TABLET (FP) PO SCH (21:09)
[2022-09-09] MEDS: QUEtiapine FUMARATE 50 MG TABLET PO SCH (21:09)
[2022-09-10] MEDS: methaDONE HCL 40 MG DISPERSABLE TABLET PO SCH (05:29)
[2022-09-10] MEDS: NICOTINE 10 MG CARTRIDGE (INHALER) IH PRN (05:31)
[2022-09-10] MEDS: ACETAMINOPHEN 325 MG TABLET (FP) PO PRN (05:31)
[2022-09-10] MEDS: PRENATAL VITAMINS W/ FOLIC ACID TABLET (FP) PO SCH (09:53)
[2022-09-10] MEDS: LOPERAMIDE HCL 2 MG CAPSULE PO PRN ×2 (09:55→20:22)
[2022-09-10] MEDS: NICOTINE POLACRILEX 2 MG GUM BUC PRN ×3 (09:56→17:08)
[2022-09-10] MEDS: QUEtiapine FUMARATE 50 MG TABLET PO SCH (20:20)
[2022-09-10] MEDS: THIAMINE HCL 100 MG TABLET (FP) PO SCH (21:14)
[2022-09-11] MEDS: methaDONE HCL 40 MG DISPERSABLE TABLET PO SCH (06:06)
[2022-09-11] MEDS: LOPERAMIDE HCL 2 MG CAPSULE PO PRN (10:14)
[2022-09-11] MEDS: PRENATAL VITAMINS W/ FOLIC ACID TABLET (FP) PO SCH (10:14)
[2022-09-11] MEDS: NICOTINE 10 MG CARTRIDGE (INHALER) IH PRN (10:15)
[2022-09-11] MEDS: NICOTINE POLACRILEX 2 MG GUM BUC PRN ×2 (17:06→21:20)
[2022-09-11] MEDS: THIAMINE HCL 100 MG TABLET (FP) PO SCH (21:18)
[2022-09-11] MEDS: QUETIAPINE FUMARATE 25 MG, QUETIAPINE FUMARATE 50 MG PO SCH (21:19)
[2022-09-11] MEDS ORDERED: QUEtiapine FUMARATE 50 MG TABLET PO SCH (22:00)
[2022-09-12] MEDS: methaDONE HCL 40 MG DISPERSABLE TABLET PO SCH ×2 (06:03→07:16)
[2022-09-12] MEDS: NICOTINE POLACRILEX 2 MG GUM BUC PRN ×2 (06:04→09:35)
[2022-09-12] MEDS: ACETAMINOPHEN 325 MG TABLET (FP) PO PRN (06:06)
[2022-09-12] MEDS: PRENATAL VITAMINS W/ FOLIC ACID TABLET (FP) PO SCH (09:34)
[2022-09-12] MEDS: NICOTINE 10 MG CARTRIDGE (INHALER) IH PRN ×2 (12:01→18:24)
[2022-09-12] MEDS: CARBAMIDE PEROXIDE 6.5% OTIC 15 ML BOTTLE AU SCH ×2 (14:29→21:16)
[2022-09-12] MEDS: LOPERAMIDE HCL 2 MG CAPSULE PO PRN (18:23)
[2022-09-12] MEDS: QUETIAPINE FUMARATE 25 MG, QUETIAPINE FUMARATE 50 MG PO SCH (21:15)
[2022-09-12] MEDS: THIAMINE HCL 100 MG TABLET (FP) PO SCH (21:15)
[2022-09-13] MEDS: methaDONE HCL 40 MG DISPERSABLE TABLET PO SCH (05:44)
[2022-09-13] MEDS: NICOTINE POLACRILEX 2 MG GUM BUC PRN ×4 (05:47→21:12)
[2022-09-13] MEDS: COLLOIDAL OATMEAL 1 BAR EACH TP PRN (05:47)
[2022-09-13] MEDS: PRENATAL VITAMINS W/ FOLIC ACID TABLET (FP) PO SCH (09:18)
[2022-09-13] MEDS: CARBAMIDE PEROXIDE 6.5% OTIC 15 ML BOTTLE AU SCH ×2 (09:18→23:45)
[2022-09-13] MEDS: QUETIAPINE FUMARATE 25 MG, QUETIAPINE FUMARATE 50 MG PO SCH (21:11)
[2022-09-13] MEDS: THIAMINE HCL 100 MG TABLET (FP) PO SCH (21:11)
[2022-09-14] MEDS ORDERED: methaDONE HCL 40 MG DISPERSABLE TABLET PO SCH (06:00)
[2022-09-14] MEDS: methaDONE 40 MG, methaDONE 10 MG PO SCH (06:24)
[2022-09-14] MEDS: NICOTINE POLACRILEX 2 MG GUM BUC PRN (06:25)
[2022-09-14] MEDS: CARBAMIDE PEROXIDE 6.5% OTIC 15 ML BOTTLE AU SCH ×2 (09:56→21:11)
[2022-09-14] MEDS: PRENATAL VITAMINS W/ FOLIC ACID TABLET (FP) PO SCH (09:56)
[2022-09-14] MEDS: NICOTINE 10 MG CARTRIDGE (INHALER) IH PRN (16:43)
[2022-09-14] MEDS: QUETIAPINE FUMARATE 25 MG, QUETIAPINE FUMARATE 50 MG PO SCH (21:09)
[2022-09-14] MEDS: THIAMINE HCL 100 MG TABLET (FP) PO SCH (21:10)
[2022-09-15] MEDS: methaDONE 40 MG, methaDONE 10 MG PO SCH (06:36)
[2022-09-15] MEDS: PRENATAL VITAMINS W/ FOLIC ACID TABLET (FP) PO SCH (10:23)
[2022-09-15] MEDS: CARBAMIDE PEROXIDE 6.5% OTIC 15 ML BOTTLE AU SCH ×2 (10:24→21:19)
[2022-09-15] MEDS: NICOTINE 10 MG CARTRIDGE (INHALER) IH PRN (10:25)
[2022-09-15] MEDS: QUETIAPINE FUMARATE 25 MG, QUETIAPINE FUMARATE 50 MG PO SCH (21:18)
[2022-09-15] MEDS: THIAMINE HCL 100 MG TABLET (FP) PO SCH (21:18)
[2022-09-16] MEDS: methaDONE 40 MG, methaDONE 10 MG PO SCH (06:32)
[2022-09-16] MEDS: NICOTINE 10 MG CARTRIDGE (INHALER) IH PRN ×2 (06:34→17:26)
[2022-09-16] MEDS: CARBAMIDE PEROXIDE 6.5% OTIC 15 ML BOTTLE AU SCH ×2 (09:43→23:53)
[2022-09-16] MEDS: PRENATAL VITAMINS W/ FOLIC ACID TABLET (FP) PO SCH (09:43)
[2022-09-16] MEDS: ACETAMINOPHEN 325 MG TABLET (FP) PO PRN ×2 (09:45→17:30)
[2022-09-16] MEDS: LOPERAMIDE HCL 2 MG CAPSULE PO PRN (17:29)
[2022-09-16] MEDS: QUETIAPINE FUMARATE 25 MG, QUETIAPINE FUMARATE 50 MG PO SCH (21:04)
[2022-09-16] MEDS: THIAMINE HCL 100 MG TABLET (FP) PO SCH (21:05)
[2022-09-17] MEDS: methaDONE 40 MG, methaDONE 10 MG PO SCH (06:31)
[2022-09-17] MEDS: NICOTINE 10 MG CARTRIDGE (INHALER) IH PRN ×4 (06:32→21:51)
[2022-09-17] MEDS: PRENATAL VITAMINS W/ FOLIC ACID TABLET (FP) PO SCH (10:20)
[2022-09-17] MEDS: CARBAMIDE PEROXIDE 6.5% OTIC 15 ML BOTTLE AU SCH ×2 (10:21→23:17)
[2022-09-17] MEDS: QUETIAPINE FUMARATE 25 MG, QUETIAPINE FUMARATE 50 MG PO SCH (21:05)
[2022-09-17] MEDS: THIAMINE HCL 100 MG TABLET (FP) PO SCH (21:06)
[2022-09-17] MEDS: LOPERAMIDE HCL 2 MG CAPSULE PO PRN (21:06)
[2022-09-18] MEDS: methaDONE 40 MG, methaDONE 10 MG PO SCH (06:31)
[2022-09-18] MEDS: NICOTINE 10 MG CARTRIDGE (INHALER) IH PRN ×2 (06:33→21:24)
[2022-09-18] MEDS: PRENATAL VITAMINS W/ FOLIC ACID TABLET (FP) PO SCH (09:39)
[2022-09-18] MEDS: CARBAMIDE PEROXIDE 6.5% OTIC 15 ML BOTTLE AU SCH ×2 (09:41→22:04)
[2022-09-18] MEDS: ACETAMINOPHEN 325 MG TABLET (FP) PO PRN (09:41)
[2022-09-18] MEDS: AMOX TR/POT CLAV 875MG/125MG TABLETS (FP) PO SCH (17:30)
[2022-09-18] MEDS: QUETIAPINE FUMARATE 25 MG, QUETIAPINE FUMARATE 50 MG PO SCH (21:19)
[2022-09-18] MEDS: THIAMINE HCL 100 MG TABLET (FP) PO SCH (21:20)
[2022-09-19] MEDS: methaDONE 40 MG, methaDONE 20 MG PO SCH (06:19)
[2022-09-19] MEDS: AMOX TR/POT CLAV 875MG/125MG TABLETS (FP) PO SCH ×2 (07:04→17:46)
[2022-09-19] MEDS: CARBAMIDE PEROXIDE 6.5% OTIC 15 ML BOTTLE AU SCH ×2 (09:46→23:26)
[2022-09-19] MEDS: PRENATAL VITAMINS W/ FOLIC ACID TABLET (FP) PO SCH (09:46)
[2022-09-19] MEDS ORDERED: methaDONE HCL 10 MG TABLET PO SCH (10:00)
[2022-09-19] MEDS: NICOTINE 10 MG CARTRIDGE (INHALER) IH PRN (17:46)
[2022-09-19] MEDS: QUETIAPINE FUMARATE 25 MG, QUETIAPINE FUMARATE 50 MG PO SCH (21:05)
[2022-09-19] MEDS: THIAMINE HCL 100 MG TABLET (FP) PO SCH (21:05)
[2022-09-20] MEDS: methaDONE 40 MG, methaDONE 20 MG PO SCH (06:26)
[2022-09-20] MEDS: NICOTINE 10 MG CARTRIDGE (INHALER) IH PRN (06:28)
[2022-09-20] MEDS: AMOX TR/POT CLAV 875MG/125MG TABLETS (FP) PO SCH ×2 (09:04→17:42)
[2022-09-20] MEDS: PRENATAL VITAMINS W/ FOLIC ACID TABLET (FP) PO SCH (09:04)
[2022-09-20] MEDS: CARBAMIDE PEROXIDE 6.5% OTIC 15 ML BOTTLE AU SCH ×2 (10:42→21:20)
[2022-09-20] MEDS: THIAMINE HCL 100 MG TABLET (FP) PO SCH (21:20)
[2022-09-20] MEDS: QUETIAPINE FUMARATE 25 MG, QUETIAPINE FUMARATE 50 MG PO SCH (21:20)
[2022-09-21] MEDS: methaDONE 40 MG, methaDONE 20 MG PO SCH (06:03)
[2022-09-21] MEDS: AMOX TR/POT CLAV 875MG/125MG TABLETS (FP) PO SCH ×2 (07:18→17:50)
[2022-09-21] MEDS: NICOTINE 10 MG CARTRIDGE (INHALER) IH PRN ×3 (08:50→23:12)
[2022-09-21] MEDS: PRENATAL VITAMINS W/ FOLIC ACID TABLET (FP) PO SCH (09:57)
[2022-09-21] MEDS: CARBAMIDE PEROXIDE 6.5% OTIC 15 ML BOTTLE AU SCH ×2 (09:59→22:37)
[2022-09-21] MEDS: ACETAMINOPHEN 325 MG TABLET (FP) PO PRN (13:42)
[2022-09-21] MEDS: THIAMINE HCL 100 MG TABLET (FP) PO SCH (21:05)
[2022-09-21] MEDS: QUETIAPINE FUMARATE 25 MG, QUETIAPINE FUMARATE 50 MG PO SCH (21:06)
[2022-09-21] MEDS: COLLOIDAL OATMEAL 1 BAR EACH TP PRN (22:24)
[2022-09-22] MEDS: methaDONE 40 MG, methaDONE 20 MG PO SCH (06:26)
[2022-09-22] MEDS: AMOX TR/POT CLAV 875MG/125MG TABLETS (FP) PO SCH ×2 (07:02→17:54)
[2022-09-22] MEDS: NICOTINE 10 MG CARTRIDGE (INHALER) IH PRN ×2 (07:23→15:47)
[2022-09-22] MEDS: QUETIAPINE FUMARATE 25 MG, QUETIAPINE FUMARATE 50 MG PO SCH (09:10)
[2022-09-22] MEDS: PRENATAL VITAMINS W/ FOLIC ACID TABLET (FP) PO SCH (10:13)
[2022-09-22] MEDS: CARBAMIDE PEROXIDE 6.5% OTIC 15 ML BOTTLE AU SCH ×2 (10:14→22:08)
[2022-09-22] MEDS: ACETAMINOPHEN 325 MG TABLET (FP) PO PRN (15:44)
[2022-09-22] MEDS: LOPERAMIDE HCL 2 MG CAPSULE PO PRN (15:46)
[2022-09-22] MEDS: IBUPROFEN 400 MG TABLET (FP) PO PRN (20:34)
[2022-09-22] MEDS: THIAMINE HCL 100 MG TABLET (FP) PO SCH (21:11)
[2022-09-23] MEDS: NICOTINE 10 MG CARTRIDGE (INHALER) IH PRN ×2 (06:04→22:47)
[2022-09-23] MEDS: methaDONE 40 MG, methaDONE 20 MG PO SCH (06:05)
[2022-09-23] MEDS: ACETAMINOPHEN 325 MG TABLET (FP) PO PRN (06:06)
[2022-09-23] MEDS: AMOX TR/POT CLAV 875MG/125MG TABLETS (FP) PO SCH ×2 (07:18→17:44)
[2022-09-23] MEDS: PRENATAL VITAMINS W/ FOLIC ACID TABLET (FP) PO SCH (09:50)
[2022-09-23] MEDS: IBUPROFEN 600 MG TABLET (FP) PO PRN (09:51)
[2022-09-23] MEDS: CARBAMIDE PEROXIDE 6.5% OTIC 15 ML BOTTLE AU SCH ×2 (09:53→21:32)
[2022-09-23] MEDS: IBUPROFEN 400 MG TABLET (FP) PO PRN (20:38)
[2022-09-23] MEDS: QUETIAPINE FUMARATE 25 MG, QUETIAPINE FUMARATE 50 MG PO SCH (21:32)
[2022-09-23] MEDS: THIAMINE HCL 100 MG TABLET (FP) PO SCH (21:32)
[2022-09-24] MEDS: IBUPROFEN 600 MG TABLET (FP) PO PRN ×2 (02:59→13:54)
[2022-09-24] MEDS: methaDONE 40 MG, methaDONE 20 MG PO SCH (06:37)
[2022-09-24] MEDS: NICOTINE 10 MG CARTRIDGE (INHALER) IH PRN ×2 (07:07→19:52)
[2022-09-24] MEDS: AMOX TR/POT CLAV 875MG/125MG TABLETS (FP) PO SCH ×2 (07:08→17:15)
[2022-09-24] MEDS: PRENATAL VITAMINS W/ FOLIC ACID TABLET (FP) PO SCH (09:08)
[2022-09-24] MEDS: CARBAMIDE PEROXIDE 6.5% OTIC 15 ML BOTTLE AU SCH ×2 (09:23→21:16)
[2022-09-24] MEDS: QUETIAPINE FUMARATE 25 MG, QUETIAPINE FUMARATE 50 MG PO SCH (21:15)
[2022-09-24] MEDS: THIAMINE HCL 100 MG TABLET (FP) PO SCH (21:15)
[2022-09-25] MEDS: methaDONE 40 MG, methaDONE 20 MG PO SCH (06:12)
[2022-09-25] MEDS: AMOX TR/POT CLAV 875MG/125MG TABLETS (FP) PO SCH ×2 (07:12→17:40)
[2022-09-25 07:26] VITALS: RESP 18
[2022-09-25] MEDS: IBUPROFEN 600 MG TABLET (FP) PO PRN (10:11)
[2022-09-25] MEDS: PRENATAL VITAMINS W/ FOLIC ACID TABLET (FP) PO SCH (10:11)
[2022-09-25] MEDS: CARBAMIDE PEROXIDE 6.5% OTIC 15 ML BOTTLE AU SCH (10:12)
[2022-09-25] MEDS: NICOTINE 10 MG CARTRIDGE (INHALER) IH PRN ×2 (13:44→17:43)
[2022-09-25] MEDS: IBUPROFEN 400 MG TABLET (FP) PO PRN (17:42)
[2022-09-25] MEDS: QUETIAPINE FUMARATE 25 MG, QUETIAPINE FUMARATE 50 MG PO SCH (21:28)
[2022-09-25] MEDS: THIAMINE HCL 100 MG TABLET (FP) PO SCH (21:29)
[2022-09-26] MEDS: CARBAMIDE PEROXIDE 6.5% OTIC 15 ML BOTTLE AU SCH ×2 (00:12→10:04)
[2022-09-26] MEDS: IBUPROFEN 600 MG TABLET (FP) PO PRN ×2 (03:08→21:18)
[2022-09-26] MEDS: IBUPROFEN 400 MG TABLET (FP) PO PRN (06:31)
[2022-09-26] MEDS: methaDONE 40 MG, methaDONE 20 MG PO SCH (06:31)
[2022-09-26] MEDS: NICOTINE 10 MG CARTRIDGE (INHALER) IH PRN ×3 (06:33→17:31)
[2022-09-26] MEDS: AMOX TR/POT CLAV 875MG/125MG TABLETS (FP) PO SCH ×2 (07:36→17:30)
[2022-09-26] MEDS: PRENATAL VITAMINS W/ FOLIC ACID TABLET (FP) PO SCH (10:03)
[2022-09-26] MEDS: THIAMINE HCL 100 MG TABLET (FP) PO SCH (21:16)
[2022-09-26] MEDS: QUETIAPINE FUMARATE 25 MG, QUETIAPINE FUMARATE 50 MG PO SCH (21:16)
[2022-09-27] MEDS: CARBAMIDE PEROXIDE 6.5% OTIC 15 ML BOTTLE AU SCH ×3 (00:17→21:19)
[2022-09-27] MEDS: NICOTINE 10 MG CARTRIDGE (INHALER) IH PRN ×3 (06:54→21:20)
[2022-09-27] MEDS: methaDONE 40 MG, methaDONE 20 MG PO SCH (06:55)
[2022-09-27] MEDS: AMOX TR/POT CLAV 875MG/125MG TABLETS (FP) PO SCH ×2 (07:03→19:52)
[2022-09-27] MEDS: PRENATAL VITAMINS W/ FOLIC ACID TABLET (FP) PO SCH (10:22)
[2022-09-27] MEDS: IBUPROFEN 400 MG TABLET (FP) PO PRN (10:22)
[2022-09-27] MEDS: QUETIAPINE FUMARATE 25 MG, QUETIAPINE FUMARATE 50 MG PO SCH (21:18)
[2022-09-27] MEDS: THIAMINE HCL 100 MG TABLET (FP) PO SCH (21:19)
[2022-09-28] MEDS: methaDONE 40 MG, methaDONE 20 MG PO SCH (06:50)
[2022-09-28] MEDS: AMOX TR/POT CLAV 875MG/125MG TABLETS (FP) PO SCH ×2 (07:09→17:13)
[2022-09-28] MEDS: PRENATAL VITAMINS W/ FOLIC ACID TABLET (FP) PO SCH (10:08)
[2022-09-28] MEDS: CARBAMIDE PEROXIDE 6.5% OTIC 15 ML BOTTLE AU SCH ×2 (10:08→21:29)
[2022-09-28] MEDS: NICOTINE 10 MG CARTRIDGE (INHALER) IH PRN (10:09)
[2022-09-28] MEDS: VITAMINS A AND D TOPICAL OINTMENT 60 GM TUBE TP SCH ×2 (12:55→17:12)
[2022-09-28] MEDS: THIAMINE HCL 100 MG TABLET (FP) PO SCH (21:28)
[2022-09-28] MEDS: QUETIAPINE FUMARATE 25 MG, QUETIAPINE FUMARATE 50 MG PO SCH (21:29)
[2022-09-29] MEDS: VITAMINS A AND D TOPICAL OINTMENT 60 GM TUBE TP SCH ×5 (01:08→17:57)
[2022-09-29] MEDS: NICOTINE 10 MG CARTRIDGE (INHALER) IH PRN ×3 (06:21→21:41)
[2022-09-29] MEDS: methaDONE 40 MG, methaDONE 20 MG PO SCH (06:22)
[2022-09-29] MEDS: PRENATAL VITAMINS W/ FOLIC ACID TABLET (FP) PO SCH (10:19)
[2022-09-29] MEDS: IBUPROFEN 400 MG TABLET (FP) PO PRN ×3 (10:20→21:40)
[2022-09-29] MEDS: CARBAMIDE PEROXIDE 6.5% OTIC 15 ML BOTTLE AU SCH ×2 (10:22→22:28)
[2022-09-29] MEDS: COLLOIDAL OATMEAL 1 BAR EACH TP PRN (18:02)
[2022-09-29] MEDS: THIAMINE HCL 100 MG TABLET (FP) PO SCH (21:39)
[2022-09-29] MEDS: QUETIAPINE FUMARATE 25 MG, QUETIAPINE FUMARATE 50 MG PO SCH (21:39)
[2022-09-30] MEDS: VITAMINS A AND D TOPICAL OINTMENT 60 GM TUBE TP SCH ×4 (01:21→18:52)
[2022-09-30] MEDS: methaDONE 40 MG, methaDONE 20 MG PO SCH (06:48)
[2022-09-30] MEDS: PRENATAL VITAMINS W/ FOLIC ACID TABLET (FP) PO SCH (10:36)
[2022-09-30] MEDS: NICOTINE 10 MG CARTRIDGE (INHALER) IH PRN (10:37)
[2022-09-30] MEDS: CARBAMIDE PEROXIDE 6.5% OTIC 15 ML BOTTLE AU SCH ×2 (10:37→21:35)
[2022-09-30] MEDS: THIAMINE HCL 100 MG TABLET (FP) PO SCH (21:33)
[2022-09-30] MEDS: IBUPROFEN 600 MG TABLET (FP) PO PRN (21:33)
[2022-09-30] MEDS: QUETIAPINE FUMARATE 25 MG, QUETIAPINE FUMARATE 50 MG PO SCH (21:33)
[2022-10-01] MEDS: VITAMINS A AND D TOPICAL OINTMENT 60 GM TUBE TP SCH ×2 (01:01→06:27)
[2022-10-01] MEDS: methaDONE 40 MG, methaDONE 20 MG PO SCH (06:27)
[2022-10-01] MEDS: IBUPROFEN 600 MG TABLET (FP) PO PRN (06:29)
[2022-10-01] MEDS: NICOTINE 10 MG CARTRIDGE (INHALER) IH PRN (06:29)
[2022-10-01 07:23] VITALS: BP 125/69; PULSE 64; TEMP 97.7
[2022-10-01] MEDS: CARBAMIDE PEROXIDE 6.5% OTIC 15 ML BOTTLE AU SCH (09:21)
[2022-10-01] MEDS: IBUPROFEN 400 MG TABLET (FP) PO PRN (09:22)
[2022-10-01] MEDS: PRENATAL VITAMINS W/ FOLIC ACID TABLET (FP) PO SCH (09:22)
== END 2022-10-01 10:05 | disposition home or self-care (01) | DRG 772 ==
LOC: YASAS 12:47 → Y5N 17:45
PROVIDERS: ADMIT Allergy & Immunology; ATTEND Psychiatry & Neurology Pain Medicine
PROC: HZ42ZZZ Group Counseling for Substance Abuse Treatment, Cognitive-Behavioral (ICD-10-PCS; principal; 2022-09-05)
DX: F11.20 Opioid dependence, uncomplicated (principal); F17.210 Nicotine dependence, cigarettes, uncomplicated; F31.9 Bipolar disorder, unspecified; F19.282 Other psychoactive substance dependence with psychoactive substance-induced sleep disorder; F19.24 Other psychoactive substance dependence with psychoactive substance-induced mood disorder; F43.10 Post-traumatic stress disorder, unspecified; F41.9 Anxiety disorder, unspecified; K01.1 Impacted teeth; H61.23 Impacted cerumen, bilateral; J34.89 Other specified disorders of nose and nasal sinuses; R06.02 Shortness of breath; Z86.11 Personal history of tuberculosis
CPT/HCPCS: 36415; 71045-TC-FY; 80053; 81003; 85027; 86780; 86803; 93005; 93010; C9803-CS; U0003; U0005

== ENCOUNTER 2023-05-03 18:04 | Inpatient (IN) | payer OTHER ==
[2023-05-03 19:19] VITALS: BMI 19.2
[2023-05-03] MEDS ORDERED: MELATONIN 5 MG TABLETS PO SCH (22:00)
[2023-05-03] MEDS ORDERED: POLYETHYLENE GLYCOL (HEALTHYLAX) 3350 17 GM PACKET PO PRN (22:52)
[2023-05-03] MEDS ORDERED: MAGNESIUM HYDROX 2400MG/30ML ORAL SUSPENSION 30 ML CUP PO PRN (22:52)
[2023-05-03] MEDS ORDERED: hydrOXYzine PAMOATE 25 MG CAPSULE (FP) PO PRN (22:52)
[2023-05-03] MEDS ORDERED: NALOXONE HCL (KLOXXADO) 8 MG SPRAY NS PRN (22:52)
[2023-05-03] MEDS ORDERED: NALOXONE HCL 0.4 MG/ML VIAL IM PRN (22:52)
[2023-05-03] MEDS ORDERED: NICOTINE POLACRILEX 2 MG GUM BUC PRN (22:52)
[2023-05-03] MEDS ORDERED: IBUPROFEN 400 MG TABLET (FP) PO PRN (22:52)
[2023-05-03] MEDS ORDERED: MAG HYDROX/AL HYDROX/SIMETH 30 ML UNIT-DOSE CUP PO PRN (22:52)
[2023-05-03] MEDS ORDERED: BENZONATATE 200 MG CAPSULE PO PRN (22:52)
[2023-05-03] MEDS ORDERED: guaiFENesin 600 MG TABLET.ER (FP) PO PRN (22:52)
[2023-05-03] MEDS ORDERED: IBUPROFEN 600 MG TABLET (FP) PO PRN (22:52)
[2023-05-03] MEDS ORDERED: LOPERAMIDE HCL 2 MG CAPSULE PO PRN (22:52)
[2023-05-04] MEDS ORDERED: MELATONIN 5 MG TABLETS ONE (01:23)
[2023-05-04] MEDS ORDERED: methaDONE HCL 10 MG TABLET PO SCH (08:30)
[2023-05-04] MEDS: PRENATAL VITAMINS W/ FOLIC ACID TABLET (FP) PO SCH (09:21)
[2023-05-04] MEDS: NICOTINE 14 MG/24 HOURS TOPICAL PATCH TD SCH (09:21)
[2023-05-04] MEDS ORDERED: busPIRone HCL 5 MG TABLET PO SCH (10:00)
[2023-05-04] MEDS: QUEtiapine FUMARATE 50 MG TABLET PO SCH ×2 (10:22→21:36)
[2023-05-04] MEDS ORDERED: ONDANSETRON *ODT* 4 MG TABLET SL PRN (10:41)
[2023-05-04 13:02] LABS: EPI CELLS 12 /uL (0-25.1); HYALINE CASTS 1 /uL (0-3.1); PH,URINE 5.5 (5.0-8.0); URINE APPEARANCE CLEAR; URINE BACTERIA 118 /uL (0-1359); URINE BILIRUBIN NEGATIVE (NEGATIVE); URINE COLOR YELLOW; URINE GLUCOSE (UA) NEGATIVE (NEGATIVE); URINE KETONE TRACE (NEGATIVE); URINE LEUK ESTERASE 2+ (NEGATIVE); URINE NITRITE NEGATIVE (NEGATIVE); URINE PROTEIN TRACE (NEGATIVE); URINE RBC 6 /uL (0-23.9); URINE UROBILINOGEN 0.2 mg/dL (0.2-1.0); URINE WBC 117 /uL (0-25.8)
[2023-05-04] MEDS: THIAMINE HCL 100 MG TABLET (FP) PO SCH (21:36)
[2023-05-05] MEDS: NICOTINE 14 MG/24 HOURS TOPICAL PATCH TD SCH (09:59)
[2023-05-05] MEDS: QUEtiapine FUMARATE 50 MG TABLET PO SCH ×2 (09:59→21:29)
[2023-05-05] MEDS: PRENATAL VITAMINS W/ FOLIC ACID TABLET (FP) PO SCH (10:00)
[2023-05-05] MEDS: THIAMINE HCL 100 MG TABLET (FP) PO SCH (21:29)
[2023-05-06] MEDS ORDERED: QUEtiapine FUMARATE 25 MG TABLET ONE (09:04)
[2023-05-06] MEDS: PRENATAL VITAMINS W/ FOLIC ACID TABLET (FP) PO SCH (10:05)
[2023-05-06] MEDS: NICOTINE 14 MG/24 HOURS TOPICAL PATCH TD SCH (10:06)
[2023-05-06] MEDS: QUEtiapine FUMARATE 50 MG TABLET PO SCH (10:06)
[2023-05-06 13:19] LABS: HEMATOCRIT 32.2 % (32.4-45.2); HEMOGLOBIN 10.4 GM/dL (10.7-15.3); MCH 28.3 pg (25.7-33.7); MCHC 32.2 g/dl (32.0-36.0); MEAN CELL VOLUME 87.8 fl (80-96); PLATELET COUNT 159 10^3/uL (134-434); RBC 3.66 M/mm3 (3.60-5.2); RDW 14.4 % (11.6-15.6)
[2023-05-06 13:21] LABS: CHLORIDE 109 mmol/L (98-107); POTASSIUM 4.7 mmol/L (3.5-5.1); SODIUM 143 mmol/L (136-145)
[2023-05-06 13:23] LABS: CALCIUM 9.3 mg/dL (8.5-10.1)
[2023-05-06 13:24] LABS: ANION GAP 6 mmol/L (4-13); CO2 28 mmol/L (21-32); GLUCOSE,RANDOM 94 mg/dL (74-106)
[2023-05-06 13:27] LABS: CREATININE 1.6 mg/dL (0.55-1.3); SGOT/AST 24 U/L (15-37); SGPT/ALT 57 U/L (13-61)
[2023-05-06 13:29] LABS: BILIRUBIN,TOTAL 0.3 mg/dL (0.2-1); TOT PROT 5.8 g/dl (6.4-8.2)
[2023-05-06 13:30] LABS: ALK PHOS 76 U/L (45-117)
[2023-05-06] MEDS: QUEtiapine FUMARATE 25 MG TABLET PO SCH (21:29)
[2023-05-06] MEDS: THIAMINE HCL 100 MG TABLET (FP) PO SCH (21:29)
[2023-05-07] MEDS: NICOTINE 14 MG/24 HOURS TOPICAL PATCH TD SCH (10:16)
[2023-05-07] MEDS: PRENATAL VITAMINS W/ FOLIC ACID TABLET (FP) PO SCH (10:17)
[2023-05-07] MEDS: QUEtiapine FUMARATE 25 MG TABLET PO SCH ×2 (10:18→23:18)
[2023-05-07] MEDS ORDERED: VARENICLINE TARTRATE 0.5 MG TAB PO SCH (11:30)
[2023-05-07] MEDS: VARENICLINE TARTRATE 0.5 MG TAB PO SCH (13:37)
[2023-05-07] MEDS: BACLOFEN 10 MG TABLET (FP) PO SCH ×2 (13:38→23:18)
[2023-05-07] MEDS: COLLOIDAL OATMEAL 1 BAR EACH TP PRN (17:33)
[2023-05-07] MEDS: THIAMINE HCL 100 MG TABLET (FP) PO SCH (23:18)
[2023-05-08] MEDS: BACLOFEN 10 MG TABLET (FP) PO SCH (06:38)
[2023-05-08] MEDS: PRENATAL VITAMINS W/ FOLIC ACID TABLET (FP) PO SCH (10:11)
[2023-05-08] MEDS: NICOTINE 14 MG/24 HOURS TOPICAL PATCH TD SCH (10:12)
[2023-05-08] MEDS: QUEtiapine FUMARATE 25 MG TABLET PO SCH ×2 (10:12→21:38)
[2023-05-08] MEDS: VARENICLINE TARTRATE 0.5 MG TAB PO SCH (10:12)
[2023-05-08] MEDS ORDERED: QUEtiapine FUMARATE 25 MG TABLET PO PRN (10:15)
[2023-05-08] MEDS ORDERED: BACLOFEN 10 MG TABLET (FP) PO PRN (10:39)
[2023-05-08] MEDS: THIAMINE HCL 100 MG TABLET (FP) PO SCH (21:38)
[2023-05-09] MEDS: VARENICLINE TARTRATE 0.5 MG TAB PO SCH (10:21)
[2023-05-09] MEDS: PRENATAL VITAMINS W/ FOLIC ACID TABLET (FP) PO SCH (10:21)
[2023-05-09] MEDS: NICOTINE 14 MG/24 HOURS TOPICAL PATCH TD SCH (10:22)
[2023-05-09] MEDS: QUEtiapine FUMARATE 25 MG TABLET PO SCH (21:38)
[2023-05-09] MEDS: THIAMINE HCL 100 MG TABLET (FP) PO SCH (21:38)
[2023-05-10] MEDS: PRENATAL VITAMINS W/ FOLIC ACID TABLET (FP) PO SCH (10:02)
[2023-05-10] MEDS: NICOTINE 14 MG/24 HOURS TOPICAL PATCH TD SCH (10:03)
[2023-05-10] MEDS: VARENICLINE TARTRATE 0.5 MG TAB PO SCH ×2 (10:03→22:30)
[2023-05-10] MEDS: ASPIRIN COATED 81 MG TABLET.EC PO SCH (11:08)
[2023-05-10] MEDS: THIAMINE HCL 100 MG TABLET (FP) PO SCH (22:30)
[2023-05-10] MEDS: QUEtiapine FUMARATE 25 MG TABLET PO SCH (22:30)
[2023-05-11] MEDS: BENZOCAINE/MENTHOL (CHLORASEPTIC ) LOZENGE MM PRN (06:37)
[2023-05-11] MEDS: PRENATAL VITAMINS W/ FOLIC ACID TABLET (FP) PO SCH (10:50)
[2023-05-11] MEDS: VARENICLINE TARTRATE 0.5 MG TAB PO SCH ×2 (10:51→21:41)
[2023-05-11] MEDS: ASPIRIN COATED 81 MG TABLET.EC PO SCH (10:51)
[2023-05-11] MEDS: NICOTINE 14 MG/24 HOURS TOPICAL PATCH TD SCH (10:52)
[2023-05-11 17:48] LABS: PH,URINE 7.5 (5.0-8.0); URINE APPEARANCE CLEAR; URINE BILIRUBIN NEGATIVE (NEGATIVE); URINE COLOR YELLOW; URINE GLUCOSE (UA) NEGATIVE (NEGATIVE); URINE KETONE NEGATIVE (NEGATIVE); URINE LEUK ESTERASE NEGATIVE (NEGATIVE); URINE NITRITE NEGATIVE (NEGATIVE); URINE PROTEIN NEGATIVE (NEGATIVE); URINE UROBILINOGEN 0.2 mg/dL (0.2-1.0)
[2023-05-11] MEDS: THIAMINE HCL 100 MG TABLET (FP) PO SCH (21:40)
[2023-05-11] MEDS: QUEtiapine FUMARATE 25 MG TABLET PO SCH (21:40)
[2023-05-12] MEDS: BENZOCAINE/MENTHOL (CHLORASEPTIC ) LOZENGE MM PRN (07:01)
[2023-05-12] MEDS: VARENICLINE TARTRATE 0.5 MG TAB PO SCH ×2 (10:21→21:10)
[2023-05-12] MEDS: ASPIRIN COATED 81 MG TABLET.EC PO SCH (10:21)
[2023-05-12] MEDS: PRENATAL VITAMINS W/ FOLIC ACID TABLET (FP) PO SCH (10:21)
[2023-05-12] MEDS: NICOTINE 14 MG/24 HOURS TOPICAL PATCH TD SCH (10:22)
[2023-05-12 10:26] LABS: POTASSIUM 5.3 mmol/L (3.5-5.1)
[2023-05-12 10:29] LABS: ALBUMIN 3.1 g/dl (3.4-5.0); BLOOD UREA NITROGEN 34.6 mg/dL (7-18); CALCIUM 9.6 mg/dL (8.5-10.1)
[2023-05-12 10:32] LABS: CREATININE 1.4 mg/dL (0.55-1.3); PHOSPHOROUS 4.8 mg/dL (2.5-4.9)
[2023-05-12] MEDS ORDERED: SODIUM POLYSTYRENE SULFONATE 15 GM/60 ML BOTTLE PO ONE (14:30)
[2023-05-12] MEDS: THIAMINE HCL 100 MG TABLET (FP) PO SCH (21:09)
[2023-05-12] MEDS: QUEtiapine FUMARATE 25 MG TABLET PO SCH (21:10)
[2023-05-13] MEDS: PRENATAL VITAMINS W/ FOLIC ACID TABLET (FP) PO SCH (10:20)
[2023-05-13] MEDS: VARENICLINE TARTRATE 0.5 MG TAB PO SCH ×2 (10:21→21:15)
[2023-05-13] MEDS: ASPIRIN COATED 81 MG TABLET.EC PO SCH (10:21)
[2023-05-13] MEDS: NICOTINE 14 MG/24 HOURS TOPICAL PATCH TD SCH (10:22)
[2023-05-13] MEDS: COLLOIDAL OATMEAL 1 BAR EACH TP PRN (10:40)
[2023-05-13 16:29] LABS: EPI CELLS 10 /uL (0-25.1); HYALINE CASTS 0 /uL (0-3.1); URINE APPEARANCE CLEAR; URINE BACTERIA 18 /uL (0-1359); URINE BILIRUBIN NEGATIVE (NEGATIVE); URINE COLOR YELLOW; URINE GLUCOSE (UA) NEGATIVE (NEGATIVE); URINE KETONE NEGATIVE (NEGATIVE); URINE LEUK ESTERASE 1+ (NEGATIVE); URINE NITRITE NEGATIVE (NEGATIVE); URINE PROTEIN NEGATIVE (NEGATIVE); URINE RBC 11 /uL (0-23.9); URINE UROBILINOGEN 0.2 mg/dL (0.2-1.0); URINE WBC 20 /uL (0-25.8)
[2023-05-13] MEDS: BENZOCAINE/MENTHOL (CHLORASEPTIC ) LOZENGE MM PRN ×2 (17:47→21:20)
[2023-05-13] MEDS: THIAMINE HCL 100 MG TABLET (FP) PO SCH (21:15)
[2023-05-13] MEDS: QUEtiapine FUMARATE 25 MG TABLET PO SCH (21:16)
[2023-05-13] MEDS: ACETAMINOPHEN 325 MG TABLET (FP) PO PRN (21:16)
[2023-05-14] MEDS: ASPIRIN COATED 81 MG TABLET.EC PO SCH (10:27)
[2023-05-14] MEDS: PRENATAL VITAMINS W/ FOLIC ACID TABLET (FP) PO SCH (10:27)
[2023-05-14] MEDS: VARENICLINE TARTRATE 1 MG TAB PO SCH ×2 (10:29→22:22)
[2023-05-14] MEDS: NICOTINE 14 MG/24 HOURS TOPICAL PATCH TD SCH (10:29)
[2023-05-14 12:41] LABS: POTASSIUM 4.7 mmol/L (3.5-5.1)
[2023-05-14 12:43] LABS: CALCIUM 9.6 mg/dL (8.5-10.1)
[2023-05-14 12:44] LABS: ALBUMIN 3.2 g/dl (3.4-5.0); BLOOD UREA NITROGEN 46.5 mg/dL (7-18)
[2023-05-14 12:47] LABS: CREATININE 1.4 mg/dL (0.55-1.3)
[2023-05-14 12:48] LABS: TOT PROT 6.4 g/dl (6.4-8.2)
[2023-05-14 12:49] LABS: BILIRUBIN,TOTAL 0.4 mg/dL (0.2-1)
[2023-05-14] MEDS: BENZOCAINE/MENTHOL (CHLORASEPTIC ) LOZENGE MM PRN (15:42)
[2023-05-14] MEDS: QUEtiapine FUMARATE 25 MG TABLET PO SCH (22:21)
[2023-05-14] MEDS: THIAMINE HCL 100 MG TABLET (FP) PO SCH (22:21)
[2023-05-14] MEDS: ACETAMINOPHEN 325 MG TABLET (FP) PO PRN (22:22)
[2023-05-15] MEDS ORDERED: VARENICLINE TARTRATE 1 MG TAB PO SCH (10:00)
[2023-05-15] MEDS: PRENATAL VITAMINS W/ FOLIC ACID TABLET (FP) PO SCH (10:10)
[2023-05-15] MEDS: VARENICLINE TARTRATE 1 MG TAB PO SCH ×2 (10:10→21:23)
[2023-05-15] MEDS: NICOTINE 14 MG/24 HOURS TOPICAL PATCH TD SCH (10:10)
[2023-05-15] MEDS: ASPIRIN COATED 81 MG TABLET.EC PO SCH (10:10)
[2023-05-15] MEDS: THIAMINE HCL 100 MG TABLET (FP) PO SCH (21:23)
[2023-05-15] MEDS: QUEtiapine FUMARATE 25 MG TABLET PO SCH (21:23)
[2023-05-15] MEDS: BENZOCAINE/MENTHOL (CHLORASEPTIC ) LOZENGE MM PRN (21:27)
[2023-05-16] MEDS: ASPIRIN COATED 81 MG TABLET.EC PO SCH (10:21)
[2023-05-16] MEDS: VARENICLINE TARTRATE 1 MG TAB PO SCH ×2 (10:21→22:09)
[2023-05-16] MEDS: PRENATAL VITAMINS W/ FOLIC ACID TABLET (FP) PO SCH (10:21)
[2023-05-16] MEDS: NICOTINE 14 MG/24 HOURS TOPICAL PATCH TD SCH (10:22)
[2023-05-16] MEDS: THIAMINE HCL 100 MG TABLET (FP) PO SCH (22:09)
[2023-05-16] MEDS: QUEtiapine FUMARATE 25 MG TABLET PO SCH (22:09)
[2023-05-17] MEDS: PRENATAL VITAMINS W/ FOLIC ACID TABLET (FP) PO SCH (09:56)
[2023-05-17] MEDS: ASPIRIN COATED 81 MG TABLET.EC PO SCH (09:56)
[2023-05-17] MEDS: VARENICLINE TARTRATE 1 MG TAB PO SCH ×2 (09:57→21:30)
[2023-05-17] MEDS: NICOTINE 14 MG/24 HOURS TOPICAL PATCH TD SCH (09:58)
[2023-05-17] MEDS: THIAMINE HCL 100 MG TABLET (FP) PO SCH (21:29)
[2023-05-17] MEDS: QUEtiapine FUMARATE 25 MG TABLET PO SCH (21:29)
[2023-05-18] MEDS: ASPIRIN COATED 81 MG TABLET.EC PO SCH (10:03)
[2023-05-18] MEDS: VARENICLINE TARTRATE 1 MG TAB PO SCH ×2 (10:03→21:35)
[2023-05-18] MEDS: PRENATAL VITAMINS W/ FOLIC ACID TABLET (FP) PO SCH (10:05)
[2023-05-18] MEDS: NICOTINE 14 MG/24 HOURS TOPICAL PATCH TD SCH (10:05)
[2023-05-18] MEDS: THIAMINE HCL 100 MG TABLET (FP) PO SCH (21:33)
[2023-05-18] MEDS: QUEtiapine FUMARATE 25 MG TABLET PO SCH (21:33)
[2023-05-19] MEDS: VARENICLINE TARTRATE 1 MG TAB PO SCH ×2 (09:40→21:07)
[2023-05-19] MEDS: ASPIRIN COATED 81 MG TABLET.EC PO SCH (09:40)
[2023-05-19] MEDS: NICOTINE 14 MG/24 HOURS TOPICAL PATCH TD SCH (09:41)
[2023-05-19] MEDS: PRENATAL VITAMINS W/ FOLIC ACID TABLET (FP) PO SCH (09:42)
[2023-05-19] MEDS: QUEtiapine FUMARATE 25 MG TABLET PO SCH (21:06)
[2023-05-19] MEDS: THIAMINE HCL 100 MG TABLET (FP) PO SCH (21:07)
[2023-05-20] MEDS: ASPIRIN COATED 81 MG TABLET.EC PO SCH (09:59)
[2023-05-20] MEDS: PRENATAL VITAMINS W/ FOLIC ACID TABLET (FP) PO SCH (10:01)
[2023-05-20] MEDS: VARENICLINE TARTRATE 1 MG TAB PO SCH ×2 (10:01→21:16)
[2023-05-20] MEDS: NICOTINE 14 MG/24 HOURS TOPICAL PATCH TD SCH (10:01)
[2023-05-20] MEDS: ACETAMINOPHEN 325 MG TABLET (FP) PO PRN ×2 (10:02→21:16)
[2023-05-20] MEDS: VITAMINS A AND D TOPICAL OINTMENT 60 GM TUBE TP SCH ×3 (14:23→23:30)
[2023-05-20] MEDS: FLUTICASONE PROP 0.05% 16 GM NASAL SPRAY NS SCH ×2 (14:24→21:16)
[2023-05-20] MEDS: BENZONATATE 200 MG CAPSULE PO PRN (14:27)
[2023-05-20] MEDS: THIAMINE HCL 100 MG TABLET (FP) PO SCH (21:15)
[2023-05-20] MEDS: QUEtiapine FUMARATE 25 MG TABLET PO SCH (21:15)
[2023-05-20] MEDS ORDERED: guaiFENesin 600 MG TABLET.ER (FP) PO SCH (22:00)
[2023-05-21] MEDS: VITAMINS A AND D TOPICAL OINTMENT 60 GM TUBE TP SCH ×3 (06:35→18:45)
[2023-05-21] MEDS: BENZONATATE 200 MG CAPSULE PO PRN ×2 (10:05→21:51)
[2023-05-21] MEDS: PRENATAL VITAMINS W/ FOLIC ACID TABLET (FP) PO SCH (10:05)
[2023-05-21] MEDS: ACETAMINOPHEN 325 MG TABLET (FP) PO PRN (10:05)
[2023-05-21] MEDS: FLUTICASONE PROP 0.05% 16 GM NASAL SPRAY NS SCH ×2 (10:06→21:47)
[2023-05-21] MEDS: VARENICLINE TARTRATE 1 MG TAB PO SCH ×2 (10:06→21:47)
[2023-05-21] MEDS: ASPIRIN COATED 81 MG TABLET.EC PO SCH (10:07)
[2023-05-21] MEDS: NICOTINE 14 MG/24 HOURS TOPICAL PATCH TD SCH (10:10)
[2023-05-21] MEDS: THIAMINE HCL 100 MG TABLET (FP) PO SCH (21:47)
[2023-05-21] MEDS: QUEtiapine FUMARATE 25 MG TABLET PO SCH (21:48)
[2023-05-22] MEDS: VITAMINS A AND D TOPICAL OINTMENT 60 GM TUBE TP SCH ×4 (00:32→18:32)
[2023-05-22] MEDS: PRENATAL VITAMINS W/ FOLIC ACID TABLET (FP) PO SCH (10:13)
[2023-05-22] MEDS: FLUTICASONE PROP 0.05% 16 GM NASAL SPRAY NS SCH ×2 (10:14→21:49)
[2023-05-22] MEDS: VARENICLINE TARTRATE 1 MG TAB PO SCH ×2 (10:15→21:49)
[2023-05-22] MEDS: ASPIRIN COATED 81 MG TABLET.EC PO SCH (10:15)
[2023-05-22] MEDS: NICOTINE 14 MG/24 HOURS TOPICAL PATCH TD SCH (10:15)
[2023-05-22] MEDS: BENZONATATE 200 MG CAPSULE PO PRN ×2 (10:17→21:51)
[2023-05-22] MEDS: THIAMINE HCL 100 MG TABLET (FP) PO SCH (21:47)
[2023-05-22] MEDS: ACETAMINOPHEN 325 MG TABLET (FP) PO PRN (21:47)
[2023-05-22] MEDS: QUEtiapine FUMARATE 25 MG TABLET PO SCH (21:47)
[2023-05-23] MEDS: VITAMINS A AND D TOPICAL OINTMENT 60 GM TUBE TP SCH ×4 (00:30→18:07)
[2023-05-23] MEDS: ASPIRIN COATED 81 MG TABLET.EC PO SCH (10:17)
[2023-05-23] MEDS: PRENATAL VITAMINS W/ FOLIC ACID TABLET (FP) PO SCH (10:17)
[2023-05-23] MEDS: NICOTINE 14 MG/24 HOURS TOPICAL PATCH TD SCH (10:17)
[2023-05-23] MEDS: VARENICLINE TARTRATE 1 MG TAB PO SCH ×2 (10:18→21:13)
[2023-05-23] MEDS: FLUTICASONE PROP 0.05% 16 GM NASAL SPRAY NS SCH ×2 (10:18→21:13)
[2023-05-23 18:48] LABS: PH,URINE 5.5 (5.0-8.0); URINE APPEARANCE CLEAR; URINE BILIRUBIN NEGATIVE (NEGATIVE); URINE COLOR YELLOW; URINE GLUCOSE (UA) NEGATIVE (NEGATIVE); URINE KETONE NEGATIVE (NEGATIVE); URINE LEUK ESTERASE NEGATIVE (NEGATIVE); URINE NITRITE NEGATIVE (NEGATIVE); URINE PROTEIN NEGATIVE (NEGATIVE); URINE UROBILINOGEN 0.2 mg/dL (0.2-1.0)
[2023-05-23] MEDS: guaiFENesin 200 MG/10 ML 10 ML UNIT-DOSE CUPS PO PRN (21:11)
[2023-05-23] MEDS: QUEtiapine FUMARATE 25 MG TABLET PO SCH (21:12)
[2023-05-23] MEDS: THIAMINE HCL 100 MG TABLET (FP) PO SCH (21:12)
[2023-05-23] MEDS: SIMETHICONE 80 MG TAB.CHEW (FP) PO PRN (21:17)
[2023-05-24] MEDS: VITAMINS A AND D TOPICAL OINTMENT 60 GM TUBE TP SCH ×4 (00:06→17:45)
[2023-05-24] MEDS: SIMETHICONE 80 MG TAB.CHEW (FP) PO PRN ×2 (06:53→17:39)
[2023-05-24] MEDS: guaiFENesin 200 MG/10 ML 10 ML UNIT-DOSE CUPS PO PRN ×2 (06:53→17:39)
[2023-05-24] MEDS: ASPIRIN COATED 81 MG TABLET.EC PO SCH (10:01)
[2023-05-24] MEDS: PRENATAL VITAMINS W/ FOLIC ACID TABLET (FP) PO SCH (10:01)
[2023-05-24] MEDS: VARENICLINE TARTRATE 1 MG TAB PO SCH ×2 (10:02→21:37)
[2023-05-24] MEDS: FLUTICASONE PROP 0.05% 16 GM NASAL SPRAY NS SCH ×2 (10:02→21:18)
[2023-05-24] MEDS: NICOTINE 14 MG/24 HOURS TOPICAL PATCH TD SCH (10:03)
[2023-05-24] MEDS: COLLOIDAL OATMEAL 1 BAR EACH TP PRN (10:06)
[2023-05-24] MEDS: QUEtiapine FUMARATE 25 MG TABLET PO SCH (21:18)
[2023-05-24] MEDS: THIAMINE HCL 100 MG TABLET (FP) PO SCH (21:18)
[2023-05-24] MEDS: ACETAMINOPHEN 325 MG TABLET (FP) PO PRN (21:22)
[2023-05-25] MEDS: VITAMINS A AND D TOPICAL OINTMENT 60 GM TUBE TP SCH ×4 (00:04→18:22)
[2023-05-25] MEDS: guaiFENesin 200 MG/10 ML 10 ML UNIT-DOSE CUPS PO PRN ×2 (07:28→21:24)
[2023-05-25] MEDS: SIMETHICONE 80 MG TAB.CHEW (FP) PO PRN (07:28)
[2023-05-25] MEDS: PRENATAL VITAMINS W/ FOLIC ACID TABLET (FP) PO SCH (10:03)
[2023-05-25] MEDS: FLUTICASONE PROP 0.05% 16 GM NASAL SPRAY NS SCH ×2 (10:04→21:24)
[2023-05-25] MEDS: ASPIRIN COATED 81 MG TABLET.EC PO SCH (10:04)
[2023-05-25] MEDS: NICOTINE 14 MG/24 HOURS TOPICAL PATCH TD SCH (10:06)
[2023-05-25] MEDS: VARENICLINE TARTRATE 1 MG TAB PO SCH ×2 (10:08→21:24)
[2023-05-25] MEDS: QUEtiapine FUMARATE 25 MG TABLET PO SCH (21:25)
[2023-05-25] MEDS: THIAMINE HCL 100 MG TABLET (FP) PO SCH (21:25)
[2023-05-26] MEDS: VITAMINS A AND D TOPICAL OINTMENT 60 GM TUBE TP SCH ×4 (00:40→17:52)
[2023-05-26] MEDS: FLUTICASONE PROP 0.05% 16 GM NASAL SPRAY NS SCH ×2 (09:58→21:32)
[2023-05-26] MEDS: PRENATAL VITAMINS W/ FOLIC ACID TABLET (FP) PO SCH (09:58)
[2023-05-26] MEDS: VARENICLINE TARTRATE 1 MG TAB PO SCH ×2 (09:58→21:32)
[2023-05-26] MEDS: ASPIRIN COATED 81 MG TABLET.EC PO SCH (09:59)
[2023-05-26] MEDS: SIMETHICONE 80 MG TAB.CHEW (FP) PO PRN ×2 (09:59→21:35)
[2023-05-26] MEDS: NICOTINE 14 MG/24 HOURS TOPICAL PATCH TD SCH (09:59)
[2023-05-26] MEDS: guaiFENesin 200 MG/10 ML 10 ML UNIT-DOSE CUPS PO PRN ×2 (10:03→21:35)
[2023-05-26] MEDS: ACETAMINOPHEN 325 MG TABLET (FP) PO PRN (10:03)
[2023-05-26] MEDS: QUEtiapine FUMARATE 25 MG TABLET PO SCH (21:33)
[2023-05-26] MEDS: THIAMINE HCL 100 MG TABLET (FP) PO SCH (21:33)
[2023-05-27] MEDS: VITAMINS A AND D TOPICAL OINTMENT 60 GM TUBE TP SCH ×4 (00:42→19:10)
[2023-05-27] MEDS: VARENICLINE TARTRATE 1 MG TAB PO SCH ×2 (11:20→21:13)
[2023-05-27] MEDS: FLUTICASONE PROP 0.05% 16 GM NASAL SPRAY NS SCH ×2 (11:20→21:14)
[2023-05-27] MEDS: NICOTINE 14 MG/24 HOURS TOPICAL PATCH TD SCH (11:20)
[2023-05-27] MEDS: ASPIRIN COATED 81 MG TABLET.EC PO SCH (11:20)
[2023-05-27] MEDS: PRENATAL VITAMINS W/ FOLIC ACID TABLET (FP) PO SCH (11:20)
[2023-05-27] MEDS: THIAMINE HCL 100 MG TABLET (FP) PO SCH (21:13)
[2023-05-27] MEDS: QUEtiapine FUMARATE 25 MG TABLET PO SCH (21:13)
[2023-05-27] MEDS: guaiFENesin 200 MG/10 ML 10 ML UNIT-DOSE CUPS PO PRN (21:15)
[2023-05-27] MEDS: SIMETHICONE 80 MG TAB.CHEW (FP) PO PRN (21:18)
[2023-05-28] MEDS: VITAMINS A AND D TOPICAL OINTMENT 60 GM TUBE TP SCH ×4 (01:04→20:03)
[2023-05-28] MEDS: FLUTICASONE PROP 0.05% 16 GM NASAL SPRAY NS SCH ×2 (09:54→21:33)
[2023-05-28] MEDS: ASPIRIN COATED 81 MG TABLET.EC PO SCH (09:55)
[2023-05-28] MEDS: VARENICLINE TARTRATE 1 MG TAB PO SCH ×2 (09:55→22:06)
[2023-05-28] MEDS: PRENATAL VITAMINS W/ FOLIC ACID TABLET (FP) PO SCH (09:55)
[2023-05-28] MEDS: guaiFENesin 200 MG/10 ML 10 ML UNIT-DOSE CUPS PO PRN ×2 (09:59→21:33)
[2023-05-28] MEDS: NICOTINE 14 MG/24 HOURS TOPICAL PATCH TD SCH (10:00)
[2023-05-28] MEDS: QUEtiapine FUMARATE 25 MG TABLET PO SCH (21:32)
[2023-05-28] MEDS: THIAMINE HCL 100 MG TABLET (FP) PO SCH (21:32)
[2023-05-29] MEDS: VITAMINS A AND D TOPICAL OINTMENT 60 GM TUBE TP SCH ×5 (01:40→19:04)
[2023-05-29] MEDS: FLUTICASONE PROP 0.05% 16 GM NASAL SPRAY NS SCH ×2 (10:02→21:17)
[2023-05-29] MEDS: VARENICLINE TARTRATE 1 MG TAB PO SCH ×2 (10:03→21:16)
[2023-05-29] MEDS: NICOTINE 14 MG/24 HOURS TOPICAL PATCH TD SCH (10:03)
[2023-05-29] MEDS: ASPIRIN COATED 81 MG TABLET.EC PO SCH (10:03)
[2023-05-29] MEDS: PRENATAL VITAMINS W/ FOLIC ACID TABLET (FP) PO SCH (10:03)
[2023-05-29] MEDS: guaiFENesin 200 MG/10 ML 10 ML UNIT-DOSE CUPS PO PRN (21:15)
[2023-05-29] MEDS: THIAMINE HCL 100 MG TABLET (FP) PO SCH (21:16)
[2023-05-29] MEDS: SIMETHICONE 80 MG TAB.CHEW (FP) PO PRN (21:16)
[2023-05-29] MEDS: QUEtiapine FUMARATE 25 MG TABLET PO SCH (21:16)
[2023-05-30] MEDS: VITAMINS A AND D TOPICAL OINTMENT 60 GM TUBE TP SCH ×4 (00:43→17:11)
[2023-05-30] MEDS: ASPIRIN COATED 81 MG TABLET.EC PO SCH (10:06)
[2023-05-30] MEDS: SIMETHICONE 80 MG TAB.CHEW (FP) PO PRN ×2 (10:06→21:15)
[2023-05-30] MEDS: FLUTICASONE PROP 0.05% 16 GM NASAL SPRAY NS SCH ×2 (10:07→21:17)
[2023-05-30] MEDS: guaiFENesin 200 MG/10 ML 10 ML UNIT-DOSE CUPS PO PRN (10:07)
[2023-05-30] MEDS: VARENICLINE TARTRATE 1 MG TAB PO SCH ×2 (10:08→21:16)
[2023-05-30] MEDS: NICOTINE 14 MG/24 HOURS TOPICAL PATCH TD SCH (10:09)
[2023-05-30] MEDS: PRENATAL VITAMINS W/ FOLIC ACID TABLET (FP) PO SCH (10:10)
[2023-05-30 12:33] LABS: BLOOD UREA NITROGEN 46.5 mg/dL (7-18); CALCIUM 9.2 mg/dL (8.5-10.1)
[2023-05-30 12:34] LABS: ALBUMIN 3.4 g/dl (3.4-5.0)
[2023-05-30 12:36] LABS: CREATININE 1.2 mg/dL (0.55-1.3)
[2023-05-30 12:38] LABS: BILIRUBIN,TOTAL 0.6 mg/dL (0.2-1); TOT PROT 6.9 g/dl (6.4-8.2)
[2023-05-30] MEDS: COLLOIDAL OATMEAL 1 BAR EACH TP PRN (21:14)
[2023-05-30] MEDS: QUEtiapine FUMARATE 25 MG TABLET PO SCH (21:15)
[2023-05-30] MEDS: THIAMINE HCL 100 MG TABLET (FP) PO SCH (21:15)
[2023-05-31] MEDS: VITAMINS A AND D TOPICAL OINTMENT 60 GM TUBE TP SCH ×2 (00:35→06:52)
[2023-05-31 07:06] VITALS: BP 130/72; PULSE 62; RESP 18; TEMP 98.1
[2023-05-31] MEDS: PRENATAL VITAMINS W/ FOLIC ACID TABLET (FP) PO SCH (09:54)
[2023-05-31] MEDS: FLUTICASONE PROP 0.05% 16 GM NASAL SPRAY NS SCH (09:55)
[2023-05-31] MEDS: ASPIRIN COATED 81 MG TABLET.EC PO SCH (09:56)
[2023-05-31] MEDS: VARENICLINE TARTRATE 1 MG TAB PO SCH (09:56)
[2023-05-31] MEDS: SIMETHICONE 80 MG TAB.CHEW (FP) PO PRN (09:56)
[2023-05-31] MEDS: NICOTINE 14 MG/24 HOURS TOPICAL PATCH TD SCH (09:58)
== END 2023-05-31 11:00 | disposition home or self-care (01) | DRG 772 ==
LOC: YASAS 18:04 → Y5N 05-04 01:12
PROVIDERS: ADMIT Allergy & Immunology; ATTEND Psychiatry & Neurology Pain Medicine
PROC: HZ42ZZZ Group Counseling for Substance Abuse Treatment, Cognitive-Behavioral (ICD-10-PCS; principal; 2023-05-04)
DX: F14.20 Cocaine dependence, uncomplicated (principal); F11.20 Opioid dependence, uncomplicated; F17.210 Nicotine dependence, cigarettes, uncomplicated; F41.9 Anxiety disorder, unspecified; F31.9 Bipolar disorder, unspecified; F43.12 Post-traumatic stress disorder, chronic; F19.982 Other psychoactive substance use, unspecified with psychoactive substance-induced sleep disorder; F19.980 Other psychoactive substance use, unspecified with psychoactive substance-induced anxiety disorder; K21.9 Gastro-esophageal reflux disease without esophagitis; L73.9 Follicular disorder, unspecified; J06.9 Acute upper respiratory infection, unspecified; R00.1 Bradycardia, unspecified; Z86.11 Personal history of tuberculosis; Z56.0 Unemployment, unspecified
CPT/HCPCS: 0241U-QW; 36415; 80053; 80069; 80307; 81003; 85027; 86780; 87086; 87635; 93005; 93010; J0475; Q0162